=== PATIENT | male | born 1950 | race Caucasian/White ===

== ENCOUNTER 2018-06-30 18:17 | Inpatient (IN) | payer MEDICARE, OTHER ==
[2018-06-30] MEDS: PANTOPRAZOLE IV 80 MG in SOD CHLORIDE 0.9% 100 ML IVPB (00:08)
[2018-06-30 18:27] LABS: ADD MAN DIFF? NO
[2018-06-30 18:32] LABS: WHITE BLOOD COUNT 20.2 10^3/ul (4.8-10.8)
[2018-06-30 18:32] LABS: BASOPHIL # 0.1 10^3/ul (0.0-0.1); BASOPHILS % 0.4 % (0.0-2.0); HEMATOCRIT 46.5 % (42.0-52.0); HEMOGLOBIN 13.5 g/dl (14.0-18.0); LYMPHOCYTES % 4.8 % (15.0-51.0); MEAN CORPUSCULAR VOLUME 96.3 fl (82.0-101.0); MEAN PLATELET VOLUME 11.6 fl (7.4-10.4); MONOCYTES % 4.8 % (0.0-11.0); NEUTROPHIL # 17.7 10^3/ul (1.6-7.5); NEUTROPHILS % 87.3 % (39.0-77.0); NUCLEATED RED BLOOD CELLS% 0.1 /100WBC (0.0-0.0); PLATELET COUNT 124 10^3/UL (140-415); POSITIVE DIFF @See below; RED BLOOD COUNT 4.83 10^6/ul (4.70-6.10); RED CELL DISTRIBUTION WIDTH 15.2 % (11.5-14.5)
[2018-06-30 18:48] LABS: INR 0.91; PROTIME 12.4 Sec (11.9-14.9)
[2018-06-30 18:49] LABS: PARTIAL THROMBOPLASTIN TIME 40.8 Sec (23.0-35.0)
[2018-06-30] MEDS: PIPER-TAZO 3.375 GM IV (PMX) 100 ML IVPB (18:50)
[2018-06-30] MEDS: SODIUM CHLORIDE 0.9% 1L BAG IV* (18:50)
[2018-06-30 18:53] LABS: ALANINE AMINOTRANSFERASE 122 IU/L (13-69); ALBUMIN/GLOBULIN RATIO 1.05; ALKALINE PHOSPHATASE 86 IU/L (42-121); ANION GAP 8 (5-13); ASPARTATE AMINO TRANSFERASE 173 IU/L (15-46); BLOOD UREA NITROGEN 38 mg/dl (7-20); CALCIUM 9.4 mg/dl (8.4-10.2); CARBON DIOXIDE 34 mmol/L (21-31); CHLORIDE 94 mmol/L (97-110); CREATININE 1.68 mg/dl (0.61-1.24); Estimated GFR 41 mL/min (>60); GLUCOSE 173 mg/dl (70-220); POTASSIUM 5.4 mmol/L (3.5-5.1); SODIUM 136 mmol/L (135-144); TOTAL PROTEIN 7.8 g/dl (6.1-8.1)
[2018-06-30 19:16] LABS: TROPONIN-I 0.248 ng/ml (0.000-0.120)
[2018-06-30] MEDS: VANCOMYCIN 1 GM (PMX) 250 ML IVPB (19:37)
[2018-06-30 19:39] LABS: ADD UMIC YES; UR AMORPHOUS CRYSTAL MANY /HPF (NONE SEEN); UR ASCORBIC ACID 40 mg/dL (NEGATIVE); UR BACTERIA FEW /HPF (NONE SEEN); UR BILIRUBIN (Dip) NEGATIVE (NEGATIVE); UR BLOOD (Dip) NEGATIVE (NEGATIVE); UR CLARITY CLOUDY (CLEAR); UR COLOR AMBER (YELLOW); UR GLUCOSE (Dip) NEGATIVE (NEGATIVE); UR HYALINE CAST FEW /HPF (NONE SEEN); UR KETONES (Dip) NEGATIVE (NEGATIVE); UR LEUKOCYTE ESTERASE (Dip) 1+ Leu/ul (NEGATIVE); UR MUCUS FEW /HPF (NONE SEEN); UR NITRITE (Dip) NEGATIVE (NEGATIVE); UR RBC 4 /HPF (0-5); UR SPECIFIC GRAVITY (Dip) 1.016 (1.003-1.030); UR TOTAL PROTEIN (Dip) 2+ mg/dl (NEGATIVE); UR UROBILINOGEN (Dip) 1+ mg/dL (NEGATIVE); UR WBC 33 /HPF (0-5)
[2018-06-30 22:15] LABS: AADO2 Arterial 481.4 mmHg (7.0-24.0); Arterial Base Excess -1.1 mmol/L (-3.0-3); Arterial Blood Gas Oxygen Sat 98.9 mmHG (95.0-98.0); Arterial COHb 2.3 % (0.0-3.0); Arterial Fraction of Oxyhgb 96.5 % (93.0-99.0); Arterial HCO3 28.7 mmol/L (22.0-26.0); Arterial MetHb 0.1 % (0.0-1.5); Arterial pCO2 74.7 mmhg (35-45); MODE VENT - AC; Site Right Brachial
[2018-06-30] MEDS ORDERED: morphine 2 MG INJ IV (23:30)
[2018-06-30] MEDS ORDERED: ACETAMINOPHEN 650 MG SUPP PR (23:30)
[2018-06-30] MEDS ORDERED: PROPOFOL 100 ML (23:59)
[2018-07-01] MEDS ORDERED: ETOMIDATE 20 MG INJ
[2018-07-01] MEDS ORDERED: ROCURONIUM 50 MG INJ
[2018-07-01] MEDS: PROPOFOL 100 ML IV ×5 (00:09→22:56)
[2018-07-01] MEDS: NORepinephrine 8MG/250 ML (PMX 250 ML IV ×2 (00:22→09:48)
[2018-07-01] MEDS: IOHEXOL 300MG/ML 150 ML BTL (00:56)
[2018-07-01] MEDS: SOD CHLORIDE 0.9% 100 ML (00:56)
[2018-07-01 01:30] LABS: Allen Test ACCEPTAB; Arterial Base Excess 0.2 mmol/L (-3.0-3); Arterial Blood Gas Oxygen Sat 77.2 mmHG (95.0-98.0); Arterial COHb 1.6 % (0.0-3.0); Arterial HCO3 26.1 mmol/L (22.0-26.0); Arterial MetHb 0 % (0.0-1.5); Arterial pCO2 47.1 mmhg (35-45); MODE VENT - AC; Site Right Radial
[2018-07-01] MEDS: DOPamine-D5W 1.6 MG/ML 250 ML IV ×2 (01:58→18:00)
[2018-07-01] MEDS: SOD CHLORIDE 0.9% 1,000 ML IV ×4 (01:59→18:37)
[2018-07-01 02:23] LABS: ADD MAN DIFF? NO
[2018-07-01 02:28] LABS: WHITE BLOOD COUNT 21.3 10^3/ul (4.8-10.8)
[2018-07-01 02:28] LABS: ABNORMAL IP MESSAGE 1; BASOPHILS % 0.1 % (0.0-2.0); HEMOGLOBIN 12.1 g/dl (14.0-18.0); LYMPHOCYTES # 1.9 10^3/ul (0.8-2.9); LYMPHOCYTES % 8.8 % (15.0-51.0); MEAN CORPUSCULAR HEMOGLOBIN 27.9 pg (29.0-33.0); MEAN CORPUSCULAR HGB CONC 30.3 g/dl (32.0-37.0); MEAN CORPUSCULAR VOLUME 92.4 fl (82.0-101.0); MONOCYTE # 1.8 10^3/ul (0.3-0.9); MONOCYTES % 8.5 % (0.0-11.0); NEUTROPHIL # 17.3 10^3/ul (1.6-7.5); NEUTROPHILS % 81.6 % (39.0-77.0); NUCLEATED RED BLOOD CELLS # 0.1 10^3/ul (0.0-0.0); NUCLEATED RED BLOOD CELLS% 0.4 /100WBC (0.0-0.0); PLATELET COUNT 138 10^3/UL (140-415); POSITIVE DIFF @See below; RED BLOOD COUNT 4.33 10^6/ul (4.70-6.10); RED CELL DISTRIBUTION WIDTH 15.4 % (11.5-14.5)
[2018-07-01 02:47] LABS: ANION GAP 6 (5-13); BLOOD UREA NITROGEN 41 mg/dl (7-20); CALCIUM 9.2 mg/dl (8.4-10.2); CARBON DIOXIDE 30 mmol/L (21-31); CHLORIDE 103 mmol/L (97-110); CREATININE 1.47 mg/dl (0.61-1.24); Estimated GFR 48 mL/min (>60); GLUCOSE 138 mg/dl (70-220); POTASSIUM 4.7 mmol/L (3.5-5.1); SODIUM 139 mmol/L (135-144)
[2018-07-01 02:58] LABS: HEMOGLOBIN A1C 5.6 % (0-5.9)
[2018-07-01 03:02] LABS: LACTIC ACID 2.6 mmol/L (0.5-2.0)
[2018-07-01] MEDS: PIPER-TAZO 3.375 GM IV (PMX) 100 ML IVPB ×5 (06:06→23:51)
[2018-07-01] MEDS ORDERED: EPINEPHrine 0.1 MG/ML SYG (07:00)
[2018-07-01] MEDS ORDERED: NA BICARBONATE 8.4% 50 ML SYG (07:00)
[2018-07-01] MEDS ORDERED: AMIODARONE 150 MG INJ (07:00)
[2018-07-01] MEDS ORDERED: CA CHLORIDE 10% 10 ML SYRINGE (07:00)
[2018-07-01] MEDS ORDERED: BARIUM SULF 2% 450 ML BTL (BERRY SMOOTHIE) PO (07:30)
[2018-07-01] MEDS: IOHEXOL 14.3 MG(I)/ML (ADULT) BTL PO ×2 (08:06→08:21)
[2018-07-01] MEDS: FAMOTIDINE 20 MG INJ IV ×2 (08:24→21:16)
[2018-07-01] MEDS: ENOXAPARIN 30 MG/0.3 ML SYG SC (09:00)
[2018-07-01 11:12] LABS: AADO2 Arterial 404.3 mmHg (7.0-24.0); Allen Test ACCEPTAB; Arterial Base Excess 1.1 mmol/L (-3.0-3); Arterial Blood Gas Oxygen Sat 99.7 mmHG (95.0-98.0); Arterial COHb 0.8 % (0.0-3.0); Arterial Fraction of Oxyhgb 98.6 % (93.0-99.0); Arterial HCO3 26.3 mmol/L (22.0-26.0); Arterial MetHb 0.3 % (0.0-1.5); Arterial pCO2 44.3 mmhg (35-45); MODE VENT - AC; Site Right Radial
[2018-07-01] MEDS ORDERED: VANCOMYCIN IV PER PHARMACY XX (14:00)
[2018-07-01 15:18] LABS: TROPONIN-I 0.311 ng/ml (0.000-0.120)
[2018-07-01] MEDS: VANCOMYCIN 1 GM 250 ML IVPB (17:24)
[2018-07-02] MEDS: SOD CHLORIDE 0.9% 1,000 ML IV ×2 (04:42→15:38)
[2018-07-02] MEDS: PROPOFOL 100 ML IV ×3 (04:42→21:02)
[2018-07-02 04:49] LABS: ADD MAN DIFF? NO
[2018-07-02 04:53] LABS: BASOPHILS % 0.4 % (0.0-2.0); EOSINOPHILS % 0.1 % (0.0-7.0); HEMATOCRIT 32.9 % (42.0-52.0); HEMOGLOBIN 10.5 g/dl (14.0-18.0); LYMPHOCYTES # 1.8 10^3/ul (0.8-2.9); LYMPHOCYTES % 15.9 % (15.0-51.0); MEAN CORPUSCULAR HEMOGLOBIN 28.3 pg (29.0-33.0); MEAN CORPUSCULAR HGB CONC 31.9 g/dl (32.0-37.0); MEAN CORPUSCULAR VOLUME 88.7 fl (82.0-101.0); MEAN PLATELET VOLUME 10.7 fl (7.4-10.4); MONOCYTE # 1.1 10^3/ul (0.3-0.9); MONOCYTES % 9.6 % (0.0-11.0); NEUTROPHIL # 8.3 10^3/ul (1.6-7.5); NEUTROPHILS % 73.6 % (39.0-77.0); PLATELET COUNT 128 10^3/UL (140-415); RED BLOOD COUNT 3.71 10^6/ul (4.70-6.10)
[2018-07-02 04:53] LABS: WHITE BLOOD COUNT 11.3 10^3/ul (4.8-10.8)
[2018-07-02 05:16] LABS: LACTIC ACID 1.4 mmol/L (0.5-2.0)
[2018-07-02 05:19] LABS: PHOSPHORUS 3.8 mg/dl (2.5-4.9)
[2018-07-02 05:19] LABS: MAGNESIUM 2.3 mg/dl (1.7-2.5)
[2018-07-02 05:21] LABS: ANION GAP 11 (5-13); BLOOD UREA NITROGEN 34 mg/dl (7-20); CALCIUM 8.6 mg/dl (8.4-10.2); CARBON DIOXIDE 26 mmol/L (21-31); CHLORIDE 105 mmol/L (97-110); CREATININE 1.51 mg/dl (0.61-1.24); Estimated GFR 46 mL/min (>60); GLUCOSE 94 mg/dl (70-220); POTASSIUM 4.5 mmol/L (3.5-5.1); SODIUM 142 mmol/L (135-144)
[2018-07-02] MEDS: PIPER-TAZO 3.375 GM IV (PMX) 100 ML IVPB ×3 (06:12→17:04)
[2018-07-02] MEDS: FAMOTIDINE 20 MG INJ IV ×2 (08:45→20:14)
[2018-07-02] MEDS: ENOXAPARIN 30 MG/0.3 ML SYG SC (09:00)
[2018-07-02 09:59] LABS: AADO2 Arterial 215.7 mmHg (7.0-24.0); Allen Test ACCEPTAB; Arterial Base Excess -1.9 mmol/L (-3.0-3); Arterial Blood Gas Oxygen Sat 94.9 mmHG (95.0-98.0); Arterial COHb 0.3 % (0.0-3.0); Arterial Fraction of Oxyhgb 94.6 % (93.0-99.0); Arterial HCO3 24.4 mmol/L (22.0-26.0); Arterial MetHb 0 % (0.0-1.5); Arterial pCO2 48.3 mmhg (35-45); MODE VENT - AC; Site Right Radial
[2018-07-02] MEDS ORDERED: ALBUTEROL HFA 8 GM INHALER INH (10:00)
[2018-07-02] MEDS: METHYLPREDNISOLONE 40 MG INJ IV ×2 (11:31→17:32)
[2018-07-02] MEDS: FENTAnyl 1,000 MCG in DEXTROSE 5% 80 ML IV (11:44)
[2018-07-02 16:10] LABS: ADD UMIC NO; UR ASCORBIC ACID NEGATIVE (NEGATIVE); UR BILIRUBIN (Dip) NEGATIVE (NEGATIVE); UR BLOOD (Dip) NEGATIVE (NEGATIVE); UR CLARITY CLEAR (CLEAR); UR COLOR STRAW (YELLOW); UR GLUCOSE (Dip) NEGATIVE (NEGATIVE); UR KETONES (Dip) NEGATIVE (NEGATIVE); UR LEUKOCYTE ESTERASE (Dip) NEGATIVE Leu/ul (NEGATIVE); UR NITRITE (Dip) NEGATIVE (NEGATIVE); UR SPECIFIC GRAVITY (Dip) 1.014 (1.003-1.030); UR TOTAL PROTEIN (Dip) NEGATIVE (NEGATIVE); UR UROBILINOGEN (Dip) NEGATIVE (NEGATIVE)
[2018-07-02 16:21] LABS: SODIUM,URINE RANDOM 30 mmol/L (30-90)
[2018-07-02 16:21] LABS: CREATININE,URINE RANDOM 37.61 mg/dl (20-370)
[2018-07-02] MEDS: VANCOMYCIN 1 GM 250 ML IVPB (17:04)
[2018-07-02] MEDS: IPRATROPIUM (HFA) 12.9 GM INHALER INH (19:33)
[2018-07-02] MEDS: ALBUTEROL 0.083% (NEB) 2.5 MG/3 ML AMP HHN (19:33)
[2018-07-03] MEDS ORDERED: ALBUTEROL HFA 8 GM INHALER (00:27)
[2018-07-03] MEDS: PIPER-TAZO 3.375 GM IV (PMX) 100 ML IVPB ×3 (00:35→12:07)
[2018-07-03] MEDS: ALBUTEROL HFA 8 GM INHALER INH ×4 (01:34→20:00)
[2018-07-03] MEDS: IPRATROPIUM (HFA) 12.9 GM INHALER INH ×4 (01:34→20:00)
[2018-07-03 05:03] LABS: ADD MAN DIFF? NO
[2018-07-03 05:08] LABS: ABNORMAL IP MESSAGE 1; HEMATOCRIT 33.4 % (42.0-52.0); HEMOGLOBIN 10.1 g/dl (14.0-18.0); LYMPHOCYTES # 0.4 10^3/ul (0.8-2.9); LYMPHOCYTES % 12.7 % (15.0-51.0); MEAN CORPUSCULAR HEMOGLOBIN 27.5 pg (29.0-33.0); MEAN CORPUSCULAR HGB CONC 30.2 g/dl (32.0-37.0); MEAN PLATELET VOLUME 10.5 fl (7.4-10.4); MONOCYTES % 1.3 % (0.0-11.0); NEUTROPHIL # 2.6 10^3/ul (1.6-7.5); NEUTROPHILS % 85.7 % (39.0-77.0); PLATELET COUNT 87 10^3/UL (140-415); POSITIVE DIFF @See below; RED BLOOD COUNT 3.67 10^6/ul (4.70-6.10); RED CELL DISTRIBUTION WIDTH 15.9 % (11.5-14.5)
[2018-07-03] MEDS: METHYLPREDNISOLONE 40 MG INJ IV ×5 (05:22→23:43)
[2018-07-03] MEDS: SOD CHLORIDE 0.9% 1,000 ML IV (05:22)
[2018-07-03 05:28] LABS: ANION GAP 12 (5-13); BLOOD UREA NITROGEN 33 mg/dl (7-20); CALCIUM 8.8 mg/dl (8.4-10.2); CARBON DIOXIDE 26 mmol/L (21-31); CHLORIDE 110 mmol/L (97-110); CREATININE 1.29 mg/dl (0.61-1.24); Estimated GFR 56 mL/min (>60); GLUCOSE 120 mg/dl (70-220); MAGNESIUM 2.4 mg/dl (1.7-2.5); PHOSPHORUS 4.6 mg/dl (2.5-4.9); POTASSIUM 4.4 mmol/L (3.5-5.1); SODIUM 148 mmol/L (135-144)
[2018-07-03] MEDS: FAMOTIDINE 20 MG INJ IV (08:31)
[2018-07-03] MEDS: ASPIRIN 81 MG TAB PO (08:31)
[2018-07-03] MEDS: SOD CHLORIDE 0.45% 1,000 ML IV ×2 (08:33→22:03)
[2018-07-03 08:37] LABS: AADO2 Arterial 320.2 mmHg (7.0-24.0); Allen Test ACCEPTAB; Arterial Base Excess -3.1 mmol/L (-3.0-3); Arterial Blood Gas Oxygen Sat 95.9 mmHG (95.0-98.0); Arterial COHb 0.2 % (0.0-3.0); Arterial Fraction of Oxyhgb 95.6 % (93.0-99.0); Arterial HCO3 23.2 mmol/L (22.0-26.0); Arterial MetHb 0.1 % (0.0-1.5); Arterial pCO2 46.3 mmhg (35-45); MODE VENT - AC; Site Right Radial
[2018-07-03] MEDS: PROPOFOL 100 ML IV (09:45)
[2018-07-03] MEDS: ENOXAPARIN 30 MG/0.3 ML SYG SC (09:52)
[2018-07-03] MEDS: FENTAnyl 1,000 MCG in DEXTROSE 5% 80 ML IV (11:42)
[2018-07-03 15:32] LABS: CREATININE, RANDOM URINE 40 mg/dL (20-320); MICROALBUMIN 2.2 mg/dL; MICROALBUMIN/CREATININE RATIO 55 (<30)
[2018-07-03 20:07] LABS: AADO2 Arterial 215.3 mmHg (7.0-24.0); Allen Test ACCEPTAB; Arterial Base Excess -1.5 mmol/L (-3.0-3); Arterial Blood Gas Oxygen Sat 99.7 mmHG (95.0-98.0); Arterial COHb 0.1 % (0.0-3.0); Arterial Fraction of Oxyhgb 99.4 % (93.0-99.0); Arterial HCO3 24.9 mmol/L (22.0-26.0); Arterial MetHb 0.2 % (0.0-1.5); Arterial pCO2 49.5 mmhg (35-45); MODE MASK - NRB; Site Right Radial
[2018-07-03] MEDS ORDERED: ALBUTEROL 0.083% (NEB) 2.5 MG/3 ML AMP HHN (20:30)
[2018-07-03] MEDS ORDERED: IPRATROPIUM (NEB) 0.5 MG/2.5 ML AMP HHN (20:30)
[2018-07-03] MEDS: MEROPENEM 1 GM/50ML(PMX) 50 ML IVPB (20:38)
[2018-07-03] MEDS: FAMOTIDINE 20 MG TAB PO (21:28)
[2018-07-03] MEDS: ALBUTEROL 0.083% (NEB) 2.5 MG/3 ML AMP HHN ×2 (21:52→23:15)
[2018-07-03] MEDS: IPRATROPIUM (NEB) 0.5 MG/2.5 ML AMP HHN (21:53)
[2018-07-04] MEDS: IPRATROPIUM (NEB) 0.5 MG/2.5 ML AMP HHN ×5 (00:07→20:09)
[2018-07-04] MEDS ORDERED: ALBUTEROL 0.083% (NEB) 2.5 MG/3 ML AMP HHN (02:00)
[2018-07-04] MEDS ORDERED: IPRATROPIUM (NEB) 0.5 MG/2.5 ML AMP HHN (02:00)
[2018-07-04] MEDS: ALBUTEROL 0.083% (NEB) 2.5 MG/3 ML AMP HHN ×4 (02:21→20:09)
[2018-07-04] MEDS: METHYLPREDNISOLONE 40 MG INJ IV ×2 (05:18→20:58)
[2018-07-04 05:24] LABS: ADD MAN DIFF? NO
[2018-07-04 05:31] LABS: WHITE BLOOD COUNT 4.6 10^3/ul (4.8-10.8)
[2018-07-04 05:31] LABS: ABNORMAL IP MESSAGE 1; HEMATOCRIT 35.3 % (42.0-52.0); HEMOGLOBIN 10.9 g/dl (14.0-18.0); LYMPHOCYTES # 0.4 10^3/ul (0.8-2.9); LYMPHOCYTES % 7.6 % (15.0-51.0); MEAN CORPUSCULAR HGB CONC 30.9 g/dl (32.0-37.0); MEAN CORPUSCULAR VOLUME 90.7 fl (82.0-101.0); MEAN PLATELET VOLUME 10.7 fl (7.4-10.4); MONOCYTE # 0.1 10^3/ul (0.3-0.9); NEUTROPHIL # 4.1 10^3/ul (1.6-7.5); NEUTROPHILS % 88.5 % (39.0-77.0); PLATELET COUNT 108 10^3/UL (140-415); POSITIVE DIFF @See below; RED BLOOD COUNT 3.89 10^6/ul (4.70-6.10); RED CELL DISTRIBUTION WIDTH 16.2 % (11.5-14.5)
[2018-07-04 06:11] LABS: ANION GAP 12 (5-13); BLOOD UREA NITROGEN 38 mg/dl (7-20); CARBON DIOXIDE 25 mmol/L (21-31); CHLORIDE 113 mmol/L (97-110); CREATININE 1.07 mg/dl (0.61-1.24); Estimated GFR > 60 mL/min (>60); GLUCOSE 107 mg/dl (70-220); MAGNESIUM 2.4 mg/dl (1.7-2.5); PHOSPHORUS 3.4 mg/dl (2.5-4.9); POTASSIUM 3.9 mmol/L (3.5-5.1); SODIUM 150 mmol/L (135-144)
[2018-07-04 07:30] LABS: AADO2 Arterial 147.7 mmHg (7.0-24.0); Allen Test ACCEPTAB; Arterial Blood Gas Oxygen Sat 91.1 mmHG (95.0-98.0); Arterial COHb 0.6 % (0.0-3.0); Arterial Fraction of Oxyhgb 90.6 % (93.0-99.0); Arterial HCO3 21.6 mmol/L (22.0-26.0); Arterial MetHb 0 % (0.0-1.5); Arterial pCO2 36.8 mmhg (35-45); MODE NASAL CANNULA; Site Right Radial
[2018-07-04] MEDS: FAMOTIDINE 20 MG TAB PO ×2 (09:00→20:58)
[2018-07-04] MEDS: ASPIRIN 81 MG TAB PO (09:00)
[2018-07-04] MEDS: MEROPENEM 1 GM/50ML(PMX) 50 ML IVPB ×2 (09:28→20:59)
[2018-07-04] MEDS: ENOXAPARIN 30 MG/0.3 ML SYG SC (09:29)
[2018-07-04] MEDS: DEXTROSE 5% 1,000 ML IV ×3 (09:36→22:54)
[2018-07-05] MEDS: ALBUTEROL 0.083% (NEB) 2.5 MG/3 ML AMP HHN ×4 (02:21→19:37)
[2018-07-05] MEDS: IPRATROPIUM (NEB) 0.5 MG/2.5 ML AMP HHN ×4 (02:21→19:37)
[2018-07-05 04:37] LABS: ADD MAN DIFF? NO
[2018-07-05 04:43] LABS: WHITE BLOOD COUNT 3.4 10^3/ul (4.8-10.8)
[2018-07-05 04:43] LABS: ABNORMAL IP MESSAGE 1; HEMATOCRIT 33.1 % (42.0-52.0); HEMOGLOBIN 10.3 g/dl (14.0-18.0); LYMPHOCYTES # 0.5 10^3/ul (0.8-2.9); LYMPHOCYTES % 13.5 % (15.0-51.0); MEAN CORPUSCULAR HGB CONC 31.1 g/dl (32.0-37.0); MEAN CORPUSCULAR VOLUME 89.9 fl (82.0-101.0); MEAN PLATELET VOLUME 10.8 fl (7.4-10.4); MONOCYTE # 0.2 10^3/ul (0.3-0.9); MONOCYTES % 4.4 % (0.0-11.0); NEUTROPHIL # 2.8 10^3/ul (1.6-7.5); NEUTROPHILS % 81.8 % (39.0-77.0); PLATELET COUNT 104 10^3/UL (140-415); POSITIVE DIFF @See below; RED BLOOD COUNT 3.68 10^6/ul (4.70-6.10)
[2018-07-05 05:02] LABS: ALANINE AMINOTRANSFERASE 35 IU/L (13-69); ALBUMIN 2.7 g/dl (3.3-4.9); ALKALINE PHOSPHATASE 46 IU/L (42-121); ANION GAP 8 (5-13); ASPARTATE AMINO TRANSFERASE 16 IU/L (15-46); BLOOD UREA NITROGEN 36 mg/dl (7-20); CALCIUM 8.8 mg/dl (8.4-10.2); CARBON DIOXIDE 28 mmol/L (21-31); CHLORIDE 109 mmol/L (97-110); CREATININE 0.95 mg/dl (0.61-1.24); Estimated GFR > 60 mL/min (>60); GLUCOSE 200 mg/dl (70-220); POTASSIUM 3.6 mmol/L (3.5-5.1); SODIUM 145 mmol/L (135-144); TOTAL PROTEIN 5.4 g/dl (6.1-8.1)
[2018-07-05 05:04] LABS: MAGNESIUM 2.4 mg/dl (1.7-2.5)
[2018-07-05 05:04] LABS: PHOSPHORUS 2.9 mg/dl (2.5-4.9)
[2018-07-05] MEDS: FAMOTIDINE 20 MG TAB PO ×2 (09:54→20:46)
[2018-07-05] MEDS: MEROPENEM 1 GM/50ML(PMX) 50 ML IVPB ×2 (09:54→20:46)
[2018-07-05] MEDS: METHYLPREDNISOLONE 40 MG INJ IV ×2 (09:54→20:46)
[2018-07-05] MEDS: ENOXAPARIN 30 MG/0.3 ML SYG SC (09:55)
[2018-07-05] MEDS: ASPIRIN 81 MG TAB PO (09:55)
[2018-07-06] MEDS: ZOLPIDEM 5 MG TAB PO ×2 (00:08→21:42)
[2018-07-06] MEDS: IPRATROPIUM (NEB) 0.5 MG/2.5 ML AMP HHN ×4 (02:27→19:19)
[2018-07-06] MEDS: ALBUTEROL 0.083% (NEB) 2.5 MG/3 ML AMP HHN ×4 (02:27→19:19)
[2018-07-06 05:50] LABS: ANION GAP 7 (5-13); BLOOD UREA NITROGEN 31 mg/dl (7-20); CALCIUM 8.9 mg/dl (8.4-10.2); CARBON DIOXIDE 30 mmol/L (21-31); CHLORIDE 108 mmol/L (97-110); CREATININE 0.75 mg/dl (0.61-1.24); Estimated GFR > 60 mL/min (>60); GLUCOSE 133 mg/dl (70-220); MAGNESIUM 2.3 mg/dl (1.7-2.5); PHOSPHORUS 2.8 mg/dl (2.5-4.9); SODIUM 145 mmol/L (135-144)
[2018-07-06] MEDS: METHYLPREDNISOLONE 40 MG INJ IV ×2 (08:09→20:09)
[2018-07-06] MEDS: ASPIRIN 81 MG TAB PO (08:10)
[2018-07-06] MEDS: FAMOTIDINE 20 MG TAB PO ×2 (08:10→20:09)
[2018-07-06] MEDS: MEROPENEM 1 GM/50ML(PMX) 50 ML IVPB (08:10)
[2018-07-06] MEDS: ENOXAPARIN 30 MG/0.3 ML SYG SC (08:19)
[2018-07-06] MEDS: AMLODIPINE 10 MG TAB PO (15:16)
[2018-07-06] MEDS: GUAIFENESIN/DM 5ML CUP PO (20:09)
[2018-07-06] MEDS: morphine 4 MG/ML VIAL IV (20:11)
[2018-07-07] MEDS: morphine 4 MG/ML VIAL IV (00:35)
[2018-07-07] MEDS: ALBUTEROL 0.083% (NEB) 2.5 MG/3 ML AMP HHN ×4 (01:10→20:00)
[2018-07-07] MEDS: IPRATROPIUM (NEB) 0.5 MG/2.5 ML AMP HHN ×4 (01:10→20:00)
[2018-07-07] MEDS: GUAIFENESIN/DM 5ML CUP PO (04:59)
[2018-07-07 06:07] LABS: ANION GAP 6 (5-13); BLOOD UREA NITROGEN 26 mg/dl (7-20); CALCIUM 9.1 mg/dl (8.4-10.2); CARBON DIOXIDE 36 mmol/L (21-31); CHLORIDE 103 mmol/L (97-110); CREATININE 0.73 mg/dl (0.61-1.24); Estimated GFR > 60 mL/min (>60); GLUCOSE 101 mg/dl (70-220); MAGNESIUM 2.2 mg/dl (1.7-2.5); PHOSPHORUS 2.8 mg/dl (2.5-4.9); POTASSIUM 4.3 mmol/L (3.5-5.1); SODIUM 145 mmol/L (135-144)
[2018-07-07] MEDS: AMLODIPINE 10 MG TAB PO (08:25)
[2018-07-07] MEDS: ASPIRIN 81 MG TAB PO (08:25)
[2018-07-07] MEDS: METHYLPREDNISOLONE 40 MG INJ IV ×2 (08:25→20:18)
[2018-07-07] MEDS: FAMOTIDINE 20 MG TAB PO ×2 (08:25→20:18)
[2018-07-07] MEDS: ENOXAPARIN 30 MG/0.3 ML SYG SC (08:27)
[2018-07-07] MEDS: BALSAM PERU/CASTOR OIL 60 GM TUBE TOP (15:55)
[2018-07-07] MEDS: DIVALPROEX (EC) 250 MG TAB PO (17:31)
[2018-07-08] MEDS: DIVALPROEX (EC) 250 MG TAB PO ×3 (00:07→18:52)
[2018-07-08] MEDS: IPRATROPIUM (NEB) 0.5 MG/2.5 ML AMP HHN ×4 (02:08→19:57)
[2018-07-08] MEDS: ALBUTEROL 0.083% (NEB) 2.5 MG/3 ML AMP HHN ×4 (02:08→19:57)
[2018-07-08] MEDS: GUAIFENESIN/DM 5ML CUP PO (02:20)
[2018-07-08] MEDS: ASPIRIN 81 MG TAB PO (08:40)
[2018-07-08] MEDS: METHYLPREDNISOLONE 40 MG INJ IV ×2 (08:40→20:31)
[2018-07-08] MEDS: FAMOTIDINE 20 MG TAB PO ×2 (08:41→20:44)
[2018-07-08] MEDS: AMLODIPINE 10 MG TAB PO (08:44)
[2018-07-08] MEDS: ENOXAPARIN 30 MG/0.3 ML SYG SC (08:45)
[2018-07-08] MEDS: BALSAM PERU/CASTOR OIL 60 GM TUBE TOP (08:50)
[2018-07-08] MEDS: INFLUENZA VIRUS VACCINE 0.5 ML (DISPENSING) IM* (16:15)
[2018-07-09] MEDS: DIVALPROEX (EC) 250 MG TAB PO ×3 (01:54→17:12)
[2018-07-09] MEDS: ALBUTEROL 0.083% (NEB) 2.5 MG/3 ML AMP HHN ×4 (02:04→19:38)
[2018-07-09] MEDS: IPRATROPIUM (NEB) 0.5 MG/2.5 ML AMP HHN ×4 (02:04→19:38)
[2018-07-09 07:07] LABS: ANION GAP 7 (5-13); BLOOD UREA NITROGEN 40 mg/dl (7-20); CALCIUM 9.5 mg/dl (8.4-10.2); CARBON DIOXIDE 33 mmol/L (21-31); CHLORIDE 102 mmol/L (97-110); CREATININE 0.84 mg/dl (0.61-1.24); Estimated GFR > 60 mL/min (>60); GLUCOSE 111 mg/dl (70-220); MAGNESIUM 2.4 mg/dl (1.7-2.5); PHOSPHORUS 3.7 mg/dl (2.5-4.9); POTASSIUM 3.9 mmol/L (3.5-5.1); SODIUM 142 mmol/L (135-144)
[2018-07-09] MEDS: FAMOTIDINE 20 MG TAB PO ×2 (08:21→20:53)
[2018-07-09] MEDS: ASPIRIN 81 MG TAB PO (08:21)
[2018-07-09] MEDS: METHYLPREDNISOLONE 40 MG INJ IV (08:21)
[2018-07-09] MEDS: ENOXAPARIN 30 MG/0.3 ML SYG SC (08:25)
[2018-07-09] MEDS: BALSAM PERU/CASTOR OIL 60 GM TUBE TOP (08:26)
[2018-07-09] MEDS: AMLODIPINE 10 MG TAB PO (09:07)
[2018-07-09] MEDS: RISPERIDONE 0.25 MG TAB PO (20:53)
[2018-07-09] MEDS: morphine LIQ (10 MG/5 ML) CUP PO (22:56)
[2018-07-09] MEDS: ZOLPIDEM 5 MG TAB PO (23:03)
[2018-07-10] MEDS: IPRATROPIUM (NEB) 0.5 MG/2.5 ML AMP HHN ×4 (01:49→21:00)
[2018-07-10] MEDS: ALBUTEROL 0.083% (NEB) 2.5 MG/3 ML AMP HHN ×4 (01:49→21:00)
[2018-07-10] MEDS: DIVALPROEX (EC) 250 MG TAB PO ×3 (01:57→17:13)
[2018-07-10 08:06] LABS: ADD MAN DIFF? NO
[2018-07-10 08:12] LABS: BASOPHILS % 0.1 % (0.0-2.0); EOSINOPHILS % 0.1 % (0.0-7.0); HEMATOCRIT 38.8 % (42.0-52.0); MEAN CORPUSCULAR HEMOGLOBIN 27.7 pg (29.0-33.0); MEAN CORPUSCULAR HGB CONC 30.9 g/dl (32.0-37.0); MEAN CORPUSCULAR VOLUME 89.6 fl (82.0-101.0); MEAN PLATELET VOLUME 10.9 fl (7.4-10.4); MONOCYTES % 8.7 % (0.0-11.0); NEUTROPHILS % 81.4 % (39.0-77.0); PLATELET COUNT 141 10^3/UL (140-415); RED BLOOD COUNT 4.33 10^6/ul (4.70-6.10); RED CELL DISTRIBUTION WIDTH 16.2 % (11.5-14.5)
[2018-07-10 08:30] LABS: ANION GAP 5 (5-13); BLOOD UREA NITROGEN 34 mg/dl (7-20); CALCIUM 9.2 mg/dl (8.4-10.2); CARBON DIOXIDE 35 mmol/L (21-31); CHLORIDE 104 mmol/L (97-110); CREATININE 0.68 mg/dl (0.61-1.24); Estimated GFR > 60 mL/min (>60); GLUCOSE 75 mg/dl (70-220); SODIUM 144 mmol/L (135-144)
[2018-07-10] MEDS: GUAIFENESIN/DM 5ML CUP PO (09:04)
[2018-07-10] MEDS: FAMOTIDINE 20 MG TAB PO ×2 (09:05→20:33)
[2018-07-10] MEDS: morphine LIQ (10 MG/5 ML) CUP PO (09:05)
[2018-07-10] MEDS: FUROSEMIDE 20 MG INJ IV (09:05)
[2018-07-10] MEDS: ASPIRIN 81 MG TAB PO (09:05)
[2018-07-10] MEDS: AMLODIPINE 10 MG TAB PO (09:07)
[2018-07-10] MEDS: RISPERIDONE 0.25 MG TAB PO ×2 (09:08→20:33)
[2018-07-10] MEDS: ENOXAPARIN 30 MG/0.3 ML SYG SC (09:12)
[2018-07-10] MEDS: BALSAM PERU/CASTOR OIL 60 GM TUBE TOP (09:21)
[2018-07-11] MEDS: DIVALPROEX (EC) 250 MG TAB PO ×3 (01:36→16:33)
[2018-07-11] MEDS: ALBUTEROL 0.083% (NEB) 2.5 MG/3 ML AMP HHN ×5 (02:14→19:42)
[2018-07-11] MEDS: IPRATROPIUM (NEB) 0.5 MG/2.5 ML AMP HHN ×5 (02:14→19:42)
[2018-07-11 07:16] LABS: ADD MAN DIFF? NO
[2018-07-11 07:30] LABS: WHITE BLOOD COUNT 11.3 10^3/ul (4.8-10.8)
[2018-07-11 07:30] LABS: BASOPHILS % 0.3 % (0.0-2.0); EOSINOPHILS # 0.2 10^3/ul (0.0-0.5); EOSINOPHILS % 1.6 % (0.0-7.0); HEMATOCRIT 38.8 % (42.0-52.0); HEMOGLOBIN 12.1 g/dl (14.0-18.0); LYMPHOCYTES # 1.6 10^3/ul (0.8-2.9); LYMPHOCYTES % 13.8 % (15.0-51.0); MEAN CORPUSCULAR HEMOGLOBIN 28.1 pg (29.0-33.0); MEAN CORPUSCULAR HGB CONC 31.2 g/dl (32.0-37.0); MEAN CORPUSCULAR VOLUME 90.2 fl (82.0-101.0); MEAN PLATELET VOLUME 11.1 fl (7.4-10.4); MONOCYTE # 0.8 10^3/ul (0.3-0.9); NEUTROPHIL # 8.7 10^3/ul (1.6-7.5); NEUTROPHILS % 76.9 % (39.0-77.0); PLATELET COUNT 132 10^3/UL (140-415); POSITIVE DIFF @See below; RED CELL DISTRIBUTION WIDTH 16.3 % (11.5-14.5)
[2018-07-11 08:01] LABS: ANION GAP 1 (5-13); BLOOD UREA NITROGEN 30 mg/dl (7-20); CALCIUM 9.1 mg/dl (8.4-10.2); CARBON DIOXIDE 35 mmol/L (21-31); CHLORIDE 102 mmol/L (97-110); CREATININE 0.75 mg/dl (0.61-1.24); Estimated GFR > 60 mL/min (>60); GLUCOSE 77 mg/dl (70-220); MAGNESIUM 2.1 mg/dl (1.7-2.5); PHOSPHORUS 2.6 mg/dl (2.5-4.9); POTASSIUM 4.4 mmol/L (3.5-5.1); SODIUM 138 mmol/L (135-144)
[2018-07-11] MEDS: RISPERIDONE 0.25 MG TAB PO (08:35)
[2018-07-11] MEDS: BALSAM PERU/CASTOR OIL 60 GM TUBE TOP (08:36)
[2018-07-11] MEDS: AMLODIPINE 10 MG TAB PO (08:36)
[2018-07-11] MEDS: ASPIRIN 81 MG TAB PO (08:36)
[2018-07-11] MEDS: FAMOTIDINE 20 MG TAB PO ×2 (08:36→20:51)
[2018-07-11] MEDS: ENOXAPARIN 30 MG/0.3 ML SYG SC (08:38)
[2018-07-11] MEDS ORDERED: VANCOMYCIN IV PER PHARMACY XX (15:00)
[2018-07-11] MEDS: MEROPENEM 1 GM/50ML(PMX) 50 ML IVPB ×2 (15:34→20:51)
[2018-07-11] MEDS: VANCOMYCIN HCL 1.25 GM in SOD CHLORIDE 0.9% 250 ML IVPB (16:26)
[2018-07-11] MEDS: FUROSEMIDE 20 MG INJ IV (16:36)
[2018-07-11] MEDS: ONDANSETRON 4 MG INJ IV (18:46)
[2018-07-11] MEDS: RISPERIDONE 1 MG TAB PO (20:51)
[2018-07-12] MEDS: DIVALPROEX (EC) 250 MG TAB PO ×3 (01:03→20:56)
[2018-07-12] MEDS: IPRATROPIUM (NEB) 0.5 MG/2.5 ML AMP HHN ×4 (01:04→20:38)
[2018-07-12] MEDS: ALBUTEROL 0.083% (NEB) 2.5 MG/3 ML AMP HHN ×4 (01:05→20:38)
[2018-07-12 06:21] LABS: ADD MAN DIFF? NO
[2018-07-12 06:27] LABS: WHITE BLOOD COUNT 7.2 10^3/ul (4.8-10.8)
[2018-07-12 06:27] LABS: EOSINOPHILS # 0.2 10^3/ul (0.0-0.5); EOSINOPHILS % 2.9 % (0.0-7.0); HEMATOCRIT 35.2 % (42.0-52.0); HEMOGLOBIN 10.7 g/dl (14.0-18.0); LYMPHOCYTES # 1.1 10^3/ul (0.8-2.9); LYMPHOCYTES % 15.4 % (15.0-51.0); MEAN CORPUSCULAR HEMOGLOBIN 27.4 pg (29.0-33.0); MEAN CORPUSCULAR HGB CONC 30.4 g/dl (32.0-37.0); MEAN PLATELET VOLUME 11.3 fl (7.4-10.4); MONOCYTE # 0.5 10^3/ul (0.3-0.9); MONOCYTES % 6.2 % (0.0-11.0); NEUTROPHIL # 5.4 10^3/ul (1.6-7.5); NEUTROPHILS % 75.1 % (39.0-77.0); PLATELET COUNT 102 10^3/UL (140-415); RED BLOOD COUNT 3.91 10^6/ul (4.70-6.10)
[2018-07-12] MEDS: VANCOMYCIN 750 MG (PMX) 250 ML IVPB ×2 (06:32→17:32)
[2018-07-12] MEDS ORDERED: NORepinephrine 8MG/250 ML BAG (07:00)
[2018-07-12] MEDS ORDERED: MIDAZOLAM 1 MG/ML 2 ML INJ (07:00)
[2018-07-12] MEDS ORDERED: VECURONIUM 10 MG VIAL (07:00)
[2018-07-12] MEDS ORDERED: ETOMIDATE 20 MG INJ (07:00)
[2018-07-12 07:02] LABS: ANION GAP 2 (5-13); BLOOD UREA NITROGEN 32 mg/dl (7-20); CALCIUM 9.2 mg/dl (8.4-10.2); CARBON DIOXIDE 38 mmol/L (21-31); CHLORIDE 100 mmol/L (97-110); Estimated GFR > 60 mL/min (>60); GLUCOSE 75 mg/dl (70-220); POTASSIUM 4.8 mmol/L (3.5-5.1); SODIUM 140 mmol/L (135-144)
[2018-07-12] MEDS: morphine LIQ (10 MG/5 ML) CUP PO (07:18)
[2018-07-12] MEDS: MEROPENEM 1 GM/50ML(PMX) 50 ML IVPB ×2 (08:29→20:57)
[2018-07-12] MEDS: FAMOTIDINE 20 MG TAB PO ×2 (08:29→20:56)
[2018-07-12] MEDS: ASPIRIN 81 MG TAB PO (08:29)
[2018-07-12] MEDS: RISPERIDONE 1 MG TAB PO ×2 (08:29→20:57)
[2018-07-12] MEDS: AMLODIPINE 10 MG TAB PO ×2 (08:35→08:36)
[2018-07-12] MEDS: BALSAM PERU/CASTOR OIL 60 GM TUBE TOP (08:35)
[2018-07-12] MEDS: ENOXAPARIN 30 MG/0.3 ML SYG SC (08:36)
[2018-07-12] MEDS ORDERED: FUROSEMIDE 40 MG INJ (09:56)
[2018-07-12] MEDS: FUROSEMIDE 40 MG INJ IV (10:00)
[2018-07-12 10:01] LABS: AADO2 Arterial 271.6 mmHg (7.0-24.0); Allen Test ACCEPTAB; Arterial Base Excess 3.2 mmol/L (-3.0-3); Arterial Blood Gas Oxygen Sat 83.7 mmHG (95.0-98.0); Arterial COHb 0.8 % (0.0-3.0); Arterial Fraction of Oxyhgb 82.9 % (93.0-99.0); Arterial HCO3 34.4 mmol/L (22.0-26.0); Arterial MetHb 0.1 % (0.0-1.5); Arterial pCO2 94.6 mmhg (35-45); MODE MASK - SIMPLE; Site Right Radial
[2018-07-12] MEDS: morphine 4 MG/ML VIAL IV (10:21)
[2018-07-12] MEDS: NORepinephrine 8MG/250 ML (PMX 250 ML IV (10:45)
[2018-07-12] MEDS: PROPOFOL 100 ML IV ×3 (11:00→22:38)
[2018-07-12] MEDS ORDERED: ALTEPLASE (CATHFLO) 2 MG INJ CATHETER (11:00)
[2018-07-12] MEDS: FENTAnyl (DRIP) 1000 mcg/100mL 100 ML IV (11:56)
[2018-07-12] MEDS: METHYLPREDNISOLONE 40 MG INJ IV ×3 (12:14→23:52)
[2018-07-12 12:31] LABS: AADO2 Arterial 397.8 mmHg (7.0-24.0); Allen Test ACCEPTAB; Arterial Base Excess 5.2 mmol/L (-3.0-3); Arterial Blood Gas Oxygen Sat 99.4 mmHG (95.0-98.0); Arterial COHb 0.7 % (0.0-3.0); Arterial Fraction of Oxyhgb 98.6 % (93.0-99.0); Arterial HCO3 34.2 mmol/L (22.0-26.0); Arterial MetHb 0.1 % (0.0-1.5); Arterial pCO2 75.2 mmhg (35-45); MODE VENT - AC; Site Right Radial
[2018-07-13] MEDS: ALBUTEROL 0.083% (NEB) 2.5 MG/3 ML AMP HHN (02:00)
[2018-07-13] MEDS: IPRATROPIUM (NEB) 0.5 MG/2.5 ML AMP HHN (02:00)
[2018-07-13] MEDS: DIVALPROEX (EC) 250 MG TAB PO ×3 (02:06→17:17)
[2018-07-13] MEDS: NORepinephrine 8MG/250 ML (PMX 250 ML IV (02:08)
[2018-07-13] MEDS: FENTAnyl (DRIP) 1000 mcg/100mL 100 ML IV ×2 (04:01→15:50)
[2018-07-13 04:57] LABS: ADD MAN DIFF? NO
[2018-07-13 05:08] LABS: ABNORMAL IP MESSAGE 1; HEMATOCRIT 32.3 % (42.0-52.0); LYMPHOCYTES # 0.5 10^3/ul (0.8-2.9); LYMPHOCYTES % 9.2 % (15.0-51.0); MEAN CORPUSCULAR HEMOGLOBIN 27.9 pg (29.0-33.0); MEAN PLATELET VOLUME 11.3 fl (7.4-10.4); MONOCYTE # 0.1 10^3/ul (0.3-0.9); MONOCYTES % 1.3 % (0.0-11.0); NEUTROPHIL # 4.8 10^3/ul (1.6-7.5); NEUTROPHILS % 88.9 % (39.0-77.0); PLATELET COUNT 131 10^3/UL (140-415); POSITIVE DIFF @See below; RED BLOOD COUNT 3.59 10^6/ul (4.70-6.10); RED CELL DISTRIBUTION WIDTH 15.9 % (11.5-14.5)
[2018-07-13 05:08] LABS: WHITE BLOOD COUNT 5.3 10^3/ul (4.8-10.8)
[2018-07-13 05:31] LABS: ANION GAP 5 (5-13); BLOOD UREA NITROGEN 30 mg/dl (7-20); CALCIUM 8.9 mg/dl (8.4-10.2); CARBON DIOXIDE 34 mmol/L (21-31); CHLORIDE 103 mmol/L (97-110); CREATININE 0.97 mg/dl (0.61-1.24); Estimated GFR > 60 mL/min (>60); GLUCOSE 173 mg/dl (70-220); SODIUM 142 mmol/L (135-144)
[2018-07-13 05:33] LABS: MAGNESIUM 2.4 mg/dl (1.7-2.5)
[2018-07-13 05:33] LABS: PHOSPHORUS 2.6 mg/dl (2.5-4.9)
[2018-07-13 05:35] LABS: VANCOMYCIN,TROUGH 17.6 ug/ml (10.0-20.0)
[2018-07-13] MEDS: VANCOMYCIN 750 MG (PMX) 250 ML IVPB (06:12)
[2018-07-13] MEDS: METHYLPREDNISOLONE 40 MG INJ IV ×4 (06:13→23:04)
[2018-07-13] MEDS: PROPOFOL 100 ML IV ×2 (06:13→15:46)
[2018-07-13] MEDS: MEROPENEM 1 GM/50ML(PMX) 50 ML IVPB ×2 (08:54→21:34)
[2018-07-13] MEDS: ENOXAPARIN 30 MG/0.3 ML SYG SC (08:57)
[2018-07-13] MEDS: AMLODIPINE 10 MG TAB PO (09:00)
[2018-07-13] MEDS: FAMOTIDINE 20 MG TAB PO ×2 (09:44→21:34)
[2018-07-13] MEDS: RISPERIDONE 1 MG TAB PO ×2 (09:44→23:02)
[2018-07-13] MEDS: ASPIRIN 81 MG TAB PO (09:44)
[2018-07-13] MEDS: BALSAM PERU/CASTOR OIL 60 GM TUBE TOP (09:45)
[2018-07-13 09:55] LABS: Allen Test ACCEPTAB; Arterial Base Excess 7.9 mmol/L (-3.0-3); Arterial COHb 0.9 % (0.0-3.0); Arterial Fraction of Oxyhgb 90.8 % (93.0-99.0); Arterial MetHb 0.3 % (0.0-1.5); Arterial pCO2 42.5 mmhg (35-45); MODE VENT - AC; Site Right Radial
[2018-07-13] MEDS: ALBUMIN HUMAN 25% 100 ML IV ×3 (12:07→23:02)
[2018-07-13] MEDS ORDERED: ALBUTEROL 0.083% (NEB) 2.5 MG/3 ML AMP INH (14:00)
[2018-07-13] MEDS ORDERED: IPRATROPIUM (NEB) 0.5 MG/2.5 ML AMP INH (14:00)
[2018-07-13] MEDS: ALBUTEROL HFA 8 GM INHALER INH ×2 (14:12→20:35)
[2018-07-13] MEDS: IPRATROPIUM (HFA) 12.9 GM INHALER INH ×2 (14:12→20:35)
[2018-07-14] MEDS: PROPOFOL 100 ML IV ×2 (00:48→08:09)
[2018-07-14] MEDS: DIVALPROEX (EC) 250 MG TAB PO ×3 (01:30→17:00)
[2018-07-14] MEDS: ALBUTEROL HFA 8 GM INHALER INH ×3 (01:59→13:10)
[2018-07-14] MEDS: IPRATROPIUM (HFA) 12.9 GM INHALER INH ×3 (01:59→13:10)
[2018-07-14 05:08] LABS: ADD MAN DIFF? NO
[2018-07-14] MEDS: METHYLPREDNISOLONE 40 MG INJ IV ×3 (05:09→18:00)
[2018-07-14] MEDS: ALBUMIN HUMAN 25% 100 ML IV (05:12)
[2018-07-14 05:13] LABS: ABNORMAL IP MESSAGE 1; HEMATOCRIT 28.5 % (42.0-52.0); HEMOGLOBIN 8.8 g/dl (14.0-18.0); LYMPHOCYTES # 0.5 10^3/ul (0.8-2.9); LYMPHOCYTES % 16.2 % (15.0-51.0); MEAN CORPUSCULAR HEMOGLOBIN 27.8 pg (29.0-33.0); MEAN CORPUSCULAR HGB CONC 30.9 g/dl (32.0-37.0); MEAN CORPUSCULAR VOLUME 90.2 fl (82.0-101.0); MEAN PLATELET VOLUME 11.5 fl (7.4-10.4); MONOCYTE # 0.1 10^3/ul (0.3-0.9); MONOCYTES % 3.1 % (0.0-11.0); NEUTROPHIL # 2.3 10^3/ul (1.6-7.5); PLATELET COUNT 78 10^3/UL (140-415); POSITIVE DIFF @See below; RED BLOOD COUNT 3.16 10^6/ul (4.70-6.10); RED CELL DISTRIBUTION WIDTH 16.5 % (11.5-14.5)
[2018-07-14 05:13] LABS: WHITE BLOOD COUNT 2.9 10^3/ul (4.8-10.8)
[2018-07-14 05:34] LABS: ANION GAP -1 (5-13); BLOOD UREA NITROGEN 38 mg/dl (7-20); CARBON DIOXIDE 37 mmol/L (21-31); CHLORIDE 112 mmol/L (97-110); CREATININE 0.77 mg/dl (0.61-1.24); Estimated GFR > 60 mL/min (>60); GLUCOSE 125 mg/dl (70-220); MAGNESIUM 2.6 mg/dl (1.7-2.5); PHOSPHORUS 2.1 mg/dl (2.5-4.9); POTASSIUM 3.8 mmol/L (3.5-5.1); SODIUM 148 mmol/L (135-144)
[2018-07-14] MEDS: VANCOMYCIN HCL 1.5 GM in SOD CHLORIDE 0.9% 250 ML IVPB (06:18)
[2018-07-14] MEDS: RISPERIDONE 1 MG TAB PO ×2 (08:10→20:38)
[2018-07-14] MEDS: FAMOTIDINE 20 MG TAB PO ×2 (08:10→20:38)
[2018-07-14] MEDS: ASPIRIN 81 MG TAB PO (08:10)
[2018-07-14] MEDS: NEUTRA-PHOS 250 MG PACKET PO (08:10)
[2018-07-14] MEDS: BALSAM PERU/CASTOR OIL 60 GM TUBE TOP (08:11)
[2018-07-14] MEDS: AMLODIPINE 10 MG TAB PO (09:00)
[2018-07-14] MEDS: ENOXAPARIN 30 MG/0.3 ML SYG SC (09:00)
[2018-07-14] MEDS: FENTAnyl (DRIP) 1000 mcg/100mL 100 ML IV (09:17)
[2018-07-14] MEDS: MEROPENEM 1 GM/50ML(PMX) 50 ML IVPB ×2 (09:45→20:38)
[2018-07-14 13:29] LABS: AADO2 Arterial 112.1 mmHg (7.0-24.0); Allen Test ACCEPTAB; Arterial Base Excess 9.3 mmol/L (-3.0-3); Arterial Blood Gas Oxygen Sat 94.7 mmHG (95.0-98.0); Arterial COHb 0.5 % (0.0-3.0); Arterial Fraction of Oxyhgb 94.2 % (93.0-99.0); Arterial MetHb 0 % (0.0-1.5); Arterial pCO2 53.3 mmhg (35-45); Blood Gas PS 10; MODE VENT - CPAP; Site Right Radial
[2018-07-14] MEDS: ZOLPIDEM 5 MG TAB PO (20:38)
[2018-07-14] MEDS: ALBUTEROL/IPRATROPIUM (NEB) 3 ML AMP HHN (20:57)
[2018-07-15] MEDS: DIVALPROEX (EC) 250 MG TAB PO ×3 (00:33→17:09)
[2018-07-15] MEDS: METHYLPREDNISOLONE 40 MG INJ IV ×4 (00:33→17:13)
[2018-07-15] MEDS: ALBUTEROL/IPRATROPIUM (NEB) 3 ML AMP HHN ×4 (01:13→19:12)
[2018-07-15] MEDS: morphine LIQ (10 MG/5 ML) CUP PO (02:47)
[2018-07-15 05:17] LABS: ADD MAN DIFF? NO
[2018-07-15 05:20] LABS: ABNORMAL IP MESSAGE 1; HEMATOCRIT 31.6 % (42.0-52.0); HEMOGLOBIN 9.7 g/dl (14.0-18.0); LYMPHOCYTES # 0.4 10^3/ul (0.8-2.9); LYMPHOCYTES % 10.2 % (15.0-51.0); MEAN CORPUSCULAR HEMOGLOBIN 27.9 pg (29.0-33.0); MEAN CORPUSCULAR HGB CONC 30.7 g/dl (32.0-37.0); MEAN CORPUSCULAR VOLUME 90.8 fl (82.0-101.0); MEAN PLATELET VOLUME 11.2 fl (7.4-10.4); MONOCYTE # 0.1 10^3/ul (0.3-0.9); MONOCYTES % 3.5 % (0.0-11.0); NEUTROPHIL # 3.2 10^3/ul (1.6-7.5); PLATELET COUNT 78 10^3/UL (140-415); POSITIVE DIFF @See below; RED BLOOD COUNT 3.48 10^6/ul (4.70-6.10); RED CELL DISTRIBUTION WIDTH 16.5 % (11.5-14.5)
[2018-07-15 05:20] LABS: WHITE BLOOD COUNT 3.7 10^3/ul (4.8-10.8)
[2018-07-15 05:46] LABS: ANION GAP 1 (5-13); BLOOD UREA NITROGEN 42 mg/dl (7-20); CALCIUM 9.4 mg/dl (8.4-10.2); CARBON DIOXIDE 37 mmol/L (21-31); CHLORIDE 113 mmol/L (97-110); CREATININE 0.77 mg/dl (0.61-1.24); Estimated GFR > 60 mL/min (>60); GLUCOSE 130 mg/dl (70-220); MAGNESIUM 2.5 mg/dl (1.7-2.5); PHOSPHORUS 2.6 mg/dl (2.5-4.9); POTASSIUM 3.6 mmol/L (3.5-5.1); SODIUM 151 mmol/L (135-144)
[2018-07-15] MEDS: VANCOMYCIN HCL 1.5 GM in SOD CHLORIDE 0.9% 250 ML IVPB (05:48)
[2018-07-15] MEDS: DEXTROSE 5% 1,000 ML IV (07:00)
[2018-07-15 08:13] LABS: Allen Test ACCEPTAB; Arterial Base Excess 3.3 mmol/L (-3.0-3); Arterial Blood Gas Oxygen Sat 93.2 mmHG (95.0-98.0); Arterial COHb 1.5 % (0.0-3.0); Arterial Fraction of Oxyhgb 91.5 % (93.0-99.0); Arterial HCO3 27.2 mmol/L (22.0-26.0); Arterial MetHb 0.3 % (0.0-1.5); Arterial pCO2 38.8 mmhg (35-45); MODE NASAL CANNULA; Site Right Radial
[2018-07-15] MEDS: MEROPENEM 1 GM/50ML(PMX) 50 ML IVPB ×2 (08:57→20:31)
[2018-07-15] MEDS: FAMOTIDINE 20 MG TAB PO ×2 (08:58→20:31)
[2018-07-15] MEDS: ASPIRIN 81 MG TAB PO (08:58)
[2018-07-15] MEDS: AMLODIPINE 5 MG TAB PO (08:58)
[2018-07-15] MEDS: RISPERIDONE 1 MG TAB PO ×2 (08:59→20:31)
[2018-07-15] MEDS: BALSAM PERU/CASTOR OIL 60 GM TUBE TOP (08:59)
[2018-07-15] MEDS: PROPOFOL 100 ML IV ×2 (11:00→20:26)
[2018-07-15] MEDS: ZOLPIDEM 5 MG TAB PO (20:31)
[2018-07-16] MEDS: METHYLPREDNISOLONE 40 MG INJ IV ×5 (00:03→23:59)
[2018-07-16] MEDS: DIVALPROEX (EC) 250 MG TAB PO ×3 (00:03→17:55)
[2018-07-16] MEDS: ALBUTEROL/IPRATROPIUM (NEB) 3 ML AMP HHN ×4 (02:08→19:57)
[2018-07-16 05:11] LABS: ADD MAN DIFF? NO
[2018-07-16 05:33] LABS: ABNORMAL IP MESSAGE 1; HEMATOCRIT 30.7 % (42.0-52.0); HEMOGLOBIN 9.6 g/dl (14.0-18.0); LYMPHOCYTES # 0.4 10^3/ul (0.8-2.9); LYMPHOCYTES % 13.7 % (15.0-51.0); MEAN CORPUSCULAR HEMOGLOBIN 27.9 pg (29.0-33.0); MEAN CORPUSCULAR HGB CONC 31.3 g/dl (32.0-37.0); MEAN CORPUSCULAR VOLUME 89.2 fl (82.0-101.0); MEAN PLATELET VOLUME 10.6 fl (7.4-10.4); MONOCYTE # 0.1 10^3/ul (0.3-0.9); MONOCYTES % 3.4 % (0.0-11.0); NEUTROPHIL # 2.4 10^3/ul (1.6-7.5); NEUTROPHILS % 82.2 % (39.0-77.0); PLATELET COUNT 69 10^3/UL (140-415); POSITIVE DIFF @See below; RED BLOOD COUNT 3.44 10^6/ul (4.70-6.10)
[2018-07-16 05:33] LABS: WHITE BLOOD COUNT 2.9 10^3/ul (4.8-10.8)
[2018-07-16 06:04] LABS: ANION GAP 1 (5-13); BLOOD UREA NITROGEN 35 mg/dl (7-20); CALCIUM 9.3 mg/dl (8.4-10.2); CARBON DIOXIDE 36 mmol/L (21-31); CHLORIDE 108 mmol/L (97-110); CREATININE 0.72 mg/dl (0.61-1.24); Estimated GFR > 60 mL/min (>60); GLUCOSE 141 mg/dl (70-220); MAGNESIUM 2.4 mg/dl (1.7-2.5); PHOSPHORUS 2.5 mg/dl (2.5-4.9); POTASSIUM 4.1 mmol/L (3.5-5.1); SODIUM 145 mmol/L (135-144)
[2018-07-16] MEDS: VANCOMYCIN HCL 1.5 GM in DEXTROSE 5% 250 ML IVPB (06:22)
[2018-07-16] MEDS: MEROPENEM 1 GM/50ML(PMX) 50 ML IVPB ×2 (09:09→20:51)
[2018-07-16] MEDS: RISPERIDONE 1 MG TAB PO ×2 (09:09→20:51)
[2018-07-16] MEDS: FAMOTIDINE 20 MG TAB PO ×2 (09:09→20:51)
[2018-07-16] MEDS: AMLODIPINE 5 MG TAB PO (09:09)
[2018-07-16] MEDS: ASPIRIN 81 MG TAB PO (09:09)
[2018-07-16] MEDS: BALSAM PERU/CASTOR OIL 60 GM TUBE TOP (09:10)
[2018-07-16] MEDS: PROPOFOL 100 ML IV ×2 (10:21→23:00)
[2018-07-17] MEDS: ALBUTEROL/IPRATROPIUM (NEB) 3 ML AMP HHN ×5 (01:12→20:00)
[2018-07-17] MEDS: LORAZEPAM 2 MG INJ IV ×2 (02:17→16:10)
[2018-07-17] MEDS: METHYLPREDNISOLONE 40 MG INJ IV ×4 (05:00→23:48)
[2018-07-17 05:20] LABS: ADD MAN DIFF? NO
[2018-07-17 05:31] LABS: ABNORMAL IP MESSAGE 1; HEMOGLOBIN 9.7 g/dl (14.0-18.0); LYMPHOCYTES # 0.3 10^3/ul (0.8-2.9); LYMPHOCYTES % 8.9 % (15.0-51.0); MEAN CORPUSCULAR HEMOGLOBIN 28.3 pg (29.0-33.0); MEAN CORPUSCULAR HGB CONC 31.3 g/dl (32.0-37.0); MEAN CORPUSCULAR VOLUME 90.4 fl (82.0-101.0); MEAN PLATELET VOLUME 10.5 fl (7.4-10.4); MONOCYTE # 0.1 10^3/ul (0.3-0.9); MONOCYTES % 3.1 % (0.0-11.0); NEUTROPHIL # 2.8 10^3/ul (1.6-7.5); NEUTROPHILS % 86.8 % (39.0-77.0); PLATELET COUNT 66 10^3/UL (140-415); POSITIVE DIFF @See below; RED BLOOD COUNT 3.43 10^6/ul (4.70-6.10); RED CELL DISTRIBUTION WIDTH 15.9 % (11.5-14.5)
[2018-07-17 05:31] LABS: WHITE BLOOD COUNT 3.3 10^3/ul (4.8-10.8)
[2018-07-17 05:49] LABS: ANION GAP 4 (5-13); BLOOD UREA NITROGEN 39 mg/dl (7-20); CALCIUM 9.4 mg/dl (8.4-10.2); CARBON DIOXIDE 38 mmol/L (21-31); CHLORIDE 105 mmol/L (97-110); Estimated GFR > 60 mL/min (>60); GLUCOSE 131 mg/dl (70-220); MAGNESIUM 2.7 mg/dl (1.7-2.5); POTASSIUM 4.2 mmol/L (3.5-5.1); SODIUM 147 mmol/L (135-144)
[2018-07-17] MEDS: DEXTROSE 5% 1,000 ML IV (08:05)
[2018-07-17] MEDS: FAMOTIDINE 20 MG TAB PO ×2 (09:17→20:15)
[2018-07-17] MEDS: MEROPENEM 1 GM/50ML(PMX) 50 ML IVPB ×2 (09:17→20:21)
[2018-07-17] MEDS: DIVALPROEX (EC) 250 MG TAB PO ×3 (09:17→17:00)
[2018-07-17] MEDS: RISPERIDONE 1 MG TAB PO ×2 (09:17→20:15)
[2018-07-17] MEDS: ASPIRIN 81 MG TAB PO (09:17)
[2018-07-17] MEDS: AMLODIPINE 5 MG TAB PO (09:17)
[2018-07-17] MEDS: BALSAM PERU/CASTOR OIL 60 GM TUBE TOP (09:33)
[2018-07-17] MEDS: PROPOFOL 100 ML IV ×2 (11:00→22:35)
[2018-07-18] MEDS: DIVALPROEX (EC) 250 MG TAB PO ×3 (00:15→16:31)
[2018-07-18] MEDS: ALBUTEROL/IPRATROPIUM (NEB) 3 ML AMP HHN ×4 (01:37→19:39)
[2018-07-18] MEDS: LORAZEPAM 2 MG INJ IV (03:40)
[2018-07-18 04:50] LABS: ADD MAN DIFF? NO
[2018-07-18 04:53] LABS: ABNORMAL IP MESSAGE 1; LYMPHOCYTES # 0.3 10^3/ul (0.8-2.9); LYMPHOCYTES % 8.7 % (15.0-51.0); MEAN CORPUSCULAR HEMOGLOBIN 28.2 pg (29.0-33.0); MEAN CORPUSCULAR HGB CONC 31.3 g/dl (32.0-37.0); MEAN CORPUSCULAR VOLUME 90.1 fl (82.0-101.0); MEAN PLATELET VOLUME 10.8 fl (7.4-10.4); MONOCYTE # 0.1 10^3/ul (0.3-0.9); MONOCYTES % 2.4 % (0.0-11.0); NEUTROPHIL # 2.9 10^3/ul (1.6-7.5); PLATELET COUNT 69 10^3/UL (140-415); POSITIVE DIFF @See below; RED BLOOD COUNT 3.55 10^6/ul (4.70-6.10); RED CELL DISTRIBUTION WIDTH 16.1 % (11.5-14.5)
[2018-07-18 04:53] LABS: WHITE BLOOD COUNT 3.3 10^3/ul (4.8-10.8)
[2018-07-18] MEDS: DEXTROSE 5% 1,000 ML IV ×2 (05:05→20:17)
[2018-07-18] MEDS: METHYLPREDNISOLONE 40 MG INJ IV ×3 (05:05→18:35)
[2018-07-18 05:13] LABS: ANION GAP -3 (5-13); BLOOD UREA NITROGEN 35 mg/dl (7-20); CALCIUM 9.5 mg/dl (8.4-10.2); CHLORIDE 113 mmol/L (97-110); CREATININE 0.71 mg/dl (0.61-1.24); Estimated GFR > 60 mL/min (>60); GLUCOSE 137 mg/dl (70-220); SODIUM 150 mmol/L (135-144)
[2018-07-18 05:14] LABS: PHOSPHORUS 2.9 mg/dl (2.5-4.9)
[2018-07-18 05:14] LABS: MAGNESIUM 2.7 mg/dl (1.7-2.5)
[2018-07-18 05:21] LABS: CARBON DIOXIDE 40 mmol/L (21-31)
[2018-07-18] MEDS: AMLODIPINE 5 MG TAB PO (09:00)
[2018-07-18] MEDS: BALSAM PERU/CASTOR OIL 60 GM TUBE TOP (10:20)
[2018-07-18] MEDS: PROPOFOL 100 ML IV ×2 (10:20→23:00)
[2018-07-18] MEDS: MEROPENEM 1 GM/50ML(PMX) 50 ML IVPB ×2 (10:20→20:17)
[2018-07-18] MEDS: RISPERIDONE 1 MG TAB PO ×2 (10:35→20:17)
[2018-07-18] MEDS: ASPIRIN 81 MG TAB PO (10:46)
[2018-07-18] MEDS: FAMOTIDINE 20 MG TAB PO ×2 (10:49→20:17)
[2018-07-18 14:21] LABS: SODIUM 150 mmol/L (135-144)
[2018-07-18] MEDS: morphine LIQ (10 MG/5 ML) CUP PO (22:18)
[2018-07-19] MEDS: DIVALPROEX (EC) 250 MG TAB PO ×3 (01:00→16:58)
[2018-07-19] MEDS: ALBUTEROL/IPRATROPIUM (NEB) 3 ML AMP HHN ×4 (01:57→19:20)
[2018-07-19] MEDS: METHYLPREDNISOLONE 40 MG INJ IV ×4 (02:07→18:17)
[2018-07-19] MEDS: LORAZEPAM 2 MG INJ IV (02:07)
[2018-07-19 06:17] LABS: ADD MAN DIFF? NO
[2018-07-19 06:21] LABS: ABNORMAL IP MESSAGE 1; HEMATOCRIT 32.1 % (42.0-52.0); HEMOGLOBIN 9.8 g/dl (14.0-18.0); LYMPHOCYTES # 0.4 10^3/ul (0.8-2.9); LYMPHOCYTES % 8.7 % (15.0-51.0); MEAN CORPUSCULAR HEMOGLOBIN 27.8 pg (29.0-33.0); MEAN CORPUSCULAR HGB CONC 30.5 g/dl (32.0-37.0); MEAN CORPUSCULAR VOLUME 91.2 fl (82.0-101.0); MEAN PLATELET VOLUME 11.1 fl (7.4-10.4); MONOCYTE # 0.1 10^3/ul (0.3-0.9); MONOCYTES % 2.3 % (0.0-11.0); NEUTROPHIL # 3.9 10^3/ul (1.6-7.5); NEUTROPHILS % 88.5 % (39.0-77.0); PLATELET COUNT 65 10^3/UL (140-415); POSITIVE DIFF @See below; RED BLOOD COUNT 3.52 10^6/ul (4.70-6.10); RED CELL DISTRIBUTION WIDTH 16.2 % (11.5-14.5)
[2018-07-19 06:21] LABS: WHITE BLOOD COUNT 4.4 10^3/ul (4.8-10.8)
[2018-07-19 06:51] LABS: ANION GAP 1 (5-13); BLOOD UREA NITROGEN 32 mg/dl (7-20); CALCIUM 9.1 mg/dl (8.4-10.2); CARBON DIOXIDE 39 mmol/L (21-31); CHLORIDE 107 mmol/L (97-110); Estimated GFR > 60 mL/min (>60); GLUCOSE 111 mg/dl (70-220); MAGNESIUM 2.7 mg/dl (1.7-2.5); PHOSPHORUS 3.2 mg/dl (2.5-4.9); POTASSIUM 4.1 mmol/L (3.5-5.1); SODIUM 147 mmol/L (135-144)
[2018-07-19 08:29] LABS: AADO2 Arterial 102.5 mmHg (7.0-24.0); Allen Test ACCEPTAB; Arterial Base Excess 7.6 mmol/L (-3.0-3); Arterial Blood Gas Oxygen Sat 94.4 mmHG (95.0-98.0); Arterial COHb 0.6 % (0.0-3.0); Arterial Fraction of Oxyhgb 93.8 % (93.0-99.0); Arterial HCO3 34.3 mmol/L (22.0-26.0); Arterial MetHb 0 % (0.0-1.5); Arterial pCO2 58.4 mmhg (35-45); MODE NASAL CANNULA; Site Right Radial
[2018-07-19] MEDS: BALSAM PERU/CASTOR OIL 60 GM TUBE TOP (09:00)
[2018-07-19] MEDS: MEROPENEM 1 GM/50ML(PMX) 50 ML IVPB (10:10)
[2018-07-19] MEDS: PROPOFOL 100 ML IV (10:16)
[2018-07-19] MEDS: FAMOTIDINE 20 MG TAB PO ×2 (11:15→20:25)
[2018-07-19] MEDS: AMLODIPINE 5 MG TAB PO (11:15)
[2018-07-19] MEDS: ASPIRIN 81 MG TAB PO (11:15)
[2018-07-19] MEDS: DEXTROSE 5% 1,000 ML IV (13:00)
[2018-07-19] MEDS: RISPERIDONE 1 MG TAB PO (20:26)
[2018-07-19] MEDS: morphine LIQ (10 MG/5 ML) CUP PO (20:26)
[2018-07-19] MEDS: GUAIFENESIN/DM 5ML CUP PO (20:36)
[2018-07-20] MEDS: morphine LIQ (10 MG/5 ML) CUP PO (00:23)
[2018-07-20] MEDS: METHYLPREDNISOLONE 40 MG INJ IV ×5 (00:23→23:26)
[2018-07-20] MEDS: DIVALPROEX (EC) 250 MG TAB PO ×2 (00:23→09:47)
[2018-07-20] MEDS: DEXTROSE 5% 1,000 ML IV ×2 (00:28→13:20)
[2018-07-20] MEDS: ALBUTEROL/IPRATROPIUM (NEB) 3 ML AMP HHN ×4 (01:20→20:57)
[2018-07-20 03:02] LABS: AADO2 Arterial 586.6 mmHg (7.0-24.0); Arterial Base Excess 7.9 mmol/L (-3.0-3); Arterial Blood Gas Oxygen Sat 71.3 mmHG (95.0-98.0); Arterial COHb 0.6 % (0.0-3.0); Arterial Fraction of Oxyhgb 70.7 % (93.0-99.0); Arterial HCO3 37.5 mmol/L (22.0-26.0); Arterial MetHb 0.2 % (0.0-1.5); Arterial pCO2 83.5 mmhg (35-45); MODE MASK - NRB; Site Right Radial
[2018-07-20] MEDS: GUAIFENESIN/DM 5ML CUP PO (05:16)
[2018-07-20 08:02] LABS: AADO2 Arterial 298.3 mmHg (7.0-24.0); Arterial Base Excess 6.7 mmol/L (-3.0-3); Arterial Blood Gas Oxygen Sat 89.6 mmHG (95.0-98.0); Arterial COHb 0.2 % (0.0-3.0); Arterial Fraction of Oxyhgb 89.3 % (93.0-99.0); Arterial HCO3 34.4 mmol/L (22.0-26.0); Arterial MetHb 0.1 % (0.0-1.5); Arterial pCO2 65.9 mmhg (35-45); MODE MASK - SIMPLE; Site Right Radial
[2018-07-20] MEDS: BALSAM PERU/CASTOR OIL 60 GM TUBE TOP (09:00)
[2018-07-20] MEDS: FAMOTIDINE 20 MG TAB PO ×2 (09:47→21:20)
[2018-07-20] MEDS: ASPIRIN 81 MG TAB PO (09:47)
[2018-07-20] MEDS: RISPERIDONE 1 MG TAB PO ×2 (09:48→21:20)
[2018-07-20] MEDS: AMLODIPINE 5 MG TAB PO (09:48)
[2018-07-20] MEDS: DIVALPROEX SPRINKLE 125 MG CAP PO (21:00)
[2018-07-20] MEDS: LORAZEPAM 2 MG INJ IV (23:26)
[2018-07-21] MEDS: ALBUTEROL/IPRATROPIUM (NEB) 3 ML AMP HHN ×4 (01:38→20:03)
[2018-07-21] MEDS: DIVALPROEX SPRINKLE 125 MG CAP PO ×3 (04:40→20:48)
[2018-07-21] MEDS: HALOPERIDOL 5 MG INJ IM (04:41)
[2018-07-21 04:52] LABS: ADD MAN DIFF? NO
[2018-07-21 04:59] LABS: ABNORMAL IP MESSAGE 1; BASOPHILS % 0.2 % (0.0-2.0); EOSINOPHILS % 0.2 % (0.0-7.0); HEMATOCRIT 33.8 % (42.0-52.0); HEMOGLOBIN 10.3 g/dl (14.0-18.0); LYMPHOCYTES # 0.4 10^3/ul (0.8-2.9); LYMPHOCYTES % 5.9 % (15.0-51.0); MEAN CORPUSCULAR HEMOGLOBIN 27.9 pg (29.0-33.0); MEAN CORPUSCULAR HGB CONC 30.5 g/dl (32.0-37.0); MEAN CORPUSCULAR VOLUME 91.6 fl (82.0-101.0); MEAN PLATELET VOLUME 12.2 fl (7.4-10.4); MONOCYTE # 0.1 10^3/ul (0.3-0.9); MONOCYTES % 1.2 % (0.0-11.0); NEUTROPHILS % 91.3 % (39.0-77.0); PLATELET COUNT 53 10^3/UL (140-415); POSITIVE DIFF @See below; RED BLOOD COUNT 3.69 10^6/ul (4.70-6.10); RED CELL DISTRIBUTION WIDTH 15.9 % (11.5-14.5)
[2018-07-21 04:59] LABS: WHITE BLOOD COUNT 6.6 10^3/ul (4.8-10.8)
[2018-07-21 05:07] LABS: AADO2 Arterial 141.1 mmHg (7.0-24.0); Allen Test ACCEPTAB; Arterial Base Excess 11.8 mmol/L (-3.0-3); Arterial COHb 0.4 % (0.0-3.0); Arterial Fraction of Oxyhgb 95.4 % (93.0-99.0); Arterial HCO3 36.5 mmol/L (22.0-26.0); Arterial MetHb 0.2 % (0.0-1.5); Arterial pCO2 48.5 mmhg (35-45); MODE NASAL CANNULA; Site Left Radial
[2018-07-21 05:18] LABS: ANION GAP -2 (5-13); BLOOD UREA NITROGEN 38 mg/dl (7-20); CALCIUM 9.3 mg/dl (8.4-10.2); CHLORIDE 108 mmol/L (97-110); CREATININE 0.77 mg/dl (0.61-1.24); Estimated GFR > 60 mL/min (>60); GLUCOSE 206 mg/dl (70-220); POTASSIUM 4.6 mmol/L (3.5-5.1); SODIUM 146 mmol/L (135-144)
[2018-07-21 05:19] LABS: CARBON DIOXIDE 40 mmol/L (21-31)
[2018-07-21 05:22] LABS: LACTIC ACID 2.8 mmol/L (0.5-2.0)
[2018-07-21] MEDS: METHYLPREDNISOLONE 40 MG INJ IV ×4 (05:53→23:46)
[2018-07-21] MEDS: ASPIRIN 81 MG TAB PO (10:23)
[2018-07-21] MEDS: AMLODIPINE 5 MG TAB PO (10:24)
[2018-07-21] MEDS: FAMOTIDINE 20 MG TAB PO ×2 (10:24→20:49)
[2018-07-21] MEDS: RISPERIDONE 1 MG TAB PO ×2 (10:25→20:49)
[2018-07-21] MEDS: BALSAM PERU/CASTOR OIL 60 GM TUBE TOP (11:24)
[2018-07-21] MEDS: LORAZEPAM 2 MG INJ IV (13:05)
[2018-07-21 15:32] LABS: AADO2 Arterial 84.3 mmHg (7.0-24.0); Allen Test ACCEPTAB; Arterial Base Excess 10.6 mmol/L (-3.0-3); Arterial Blood Gas Oxygen Sat 96.6 mmHG (95.0-98.0); Arterial COHb 0.2 % (0.0-3.0); Arterial Fraction of Oxyhgb 96.1 % (93.0-99.0); Arterial HCO3 35.7 mmol/L (22.0-26.0); Arterial MetHb 0.3 % (0.0-1.5); MODE NASAL CANNULA; Site Right Radial
[2018-07-22] MEDS: HALOPERIDOL 5 MG INJ IM (00:44)
[2018-07-22] MEDS: ALBUTEROL/IPRATROPIUM (NEB) 3 ML AMP HHN ×4 (01:37→20:01)
[2018-07-22] MEDS: DIVALPROEX SPRINKLE 125 MG CAP PO ×3 (05:20→20:58)
[2018-07-22] MEDS: METHYLPREDNISOLONE 40 MG INJ IV ×3 (05:20→18:25)
[2018-07-22 06:15] LABS: ANION GAP 4 (5-13); BLOOD UREA NITROGEN 46 mg/dl (7-20); CALCIUM 9.6 mg/dl (8.4-10.2); CARBON DIOXIDE 38 mmol/L (21-31); CHLORIDE 112 mmol/L (97-110); Estimated GFR > 60 mL/min (>60); GLUCOSE 165 mg/dl (70-220); MAGNESIUM 2.9 mg/dl (1.7-2.5); PHOSPHORUS 2.8 mg/dl (2.5-4.9); POTASSIUM 3.6 mmol/L (3.5-5.1); SODIUM 154 mmol/L (135-144)
[2018-07-22] MEDS: DEXTROSE 5% 1,000 ML IV ×2 (06:50→20:52)
[2018-07-22] MEDS: morphine LIQ (10 MG/5 ML) CUP PO ×2 (08:04→12:44)
[2018-07-22] MEDS: AMLODIPINE 5 MG TAB PO (09:00)
[2018-07-22] MEDS: FAMOTIDINE 20 MG TAB PO ×2 (09:00→20:58)
[2018-07-22] MEDS: RISPERIDONE 1 MG TAB PO ×2 (09:00→20:58)
[2018-07-22] MEDS: ASPIRIN 81 MG TAB PO (09:00)
[2018-07-22] MEDS: BALSAM PERU/CASTOR OIL 60 GM TUBE TOP (10:00)
[2018-07-22] MEDS ORDERED: APIXABAN 5 MG TABLET PO (21:00)
[2018-07-23] MEDS: METHYLPREDNISOLONE 40 MG INJ IV ×5 (00:52→23:24)
[2018-07-23] MEDS: ALBUTEROL/IPRATROPIUM (NEB) 3 ML AMP HHN ×4 (02:11→20:18)
[2018-07-23] MEDS: DIVALPROEX SPRINKLE 125 MG CAP PO ×3 (04:14→20:41)
[2018-07-23 05:26] LABS: ADD MAN DIFF? NO
[2018-07-23 05:39] LABS: ABNORMAL IP MESSAGE 1; HEMATOCRIT 34.8 % (42.0-52.0); HEMOGLOBIN 10.6 g/dl (14.0-18.0); LYMPHOCYTES # 0.2 10^3/ul (0.8-2.9); LYMPHOCYTES % 4.3 % (15.0-51.0); MEAN CORPUSCULAR HGB CONC 30.5 g/dl (32.0-37.0); MEAN CORPUSCULAR VOLUME 92.1 fl (82.0-101.0); MEAN PLATELET VOLUME 10.6 fl (7.4-10.4); MONOCYTE # 0.1 10^3/ul (0.3-0.9); MONOCYTES % 2.3 % (0.0-11.0); NEUTROPHIL # 5.2 10^3/ul (1.6-7.5); NEUTROPHILS % 92.9 % (39.0-77.0); PLATELET COUNT 47 10^3/UL (140-415); POSITIVE DIFF @See below; RED BLOOD COUNT 3.78 10^6/ul (4.70-6.10); RED CELL DISTRIBUTION WIDTH 16.9 % (11.5-14.5)
[2018-07-23 05:39] LABS: WHITE BLOOD COUNT 5.6 10^3/ul (4.8-10.8)
[2018-07-23 05:47] LABS: BLOOD UREA NITROGEN 42 mg/dl (7-20); CALCIUM 9.3 mg/dl (8.4-10.2); CHLORIDE 112 mmol/L (97-110); CREATININE 0.87 mg/dl (0.61-1.24); Estimated GFR > 60 mL/min (>60); GLUCOSE 167 mg/dl (70-220); MAGNESIUM 2.8 mg/dl (1.7-2.5); PHOSPHORUS 3.5 mg/dl (2.5-4.9); POTASSIUM 3.9 mmol/L (3.5-5.1); SODIUM 154 mmol/L (135-144)
[2018-07-23 05:53] LABS: ANION GAP 2 (5-13)
[2018-07-23 06:28] LABS: CARBON DIOXIDE 40 mmol/L (21-31)
[2018-07-23] MEDS: DEXTROSE 5% 1,000 ML IV ×3 (06:44→23:19)
[2018-07-23] MEDS: RISPERIDONE 1 MG TAB PO ×2 (09:00→20:41)
[2018-07-23] MEDS: AMLODIPINE 5 MG TAB PO (09:00)
[2018-07-23] MEDS: FAMOTIDINE 20 MG TAB PO ×2 (09:00→20:41)
[2018-07-23] MEDS: ASPIRIN 81 MG TAB PO (09:00)
[2018-07-23] MEDS: BALSAM PERU/CASTOR OIL 60 GM TUBE TOP (09:54)
[2018-07-23 11:59] LABS: ADD UMIC YES; UR ASCORBIC ACID NEGATIVE (NEGATIVE); UR BILIRUBIN (Dip) NEGATIVE (NEGATIVE); UR BLOOD (Dip) 2+ mg/dL (NEGATIVE); UR CLARITY CLEAR (CLEAR); UR COLOR STRAW (YELLOW); UR GLUCOSE (Dip) 1+ mg/dL (NEGATIVE); UR KETONES (Dip) NEGATIVE (NEGATIVE); UR LEUKOCYTE ESTERASE (Dip) NEGATIVE Leu/ul (NEGATIVE); UR NITRITE (Dip) NEGATIVE (NEGATIVE); UR RBC 4 /HPF (0-5); UR SPECIFIC GRAVITY (Dip) 1.009 (1.003-1.030); UR TOTAL PROTEIN (Dip) NEGATIVE (NEGATIVE); UR UROBILINOGEN (Dip) NEGATIVE (NEGATIVE); UR WBC 1 /HPF (0-5)
[2018-07-23 12:04] LABS: TYPE AND SCREEN 1 1
[2018-07-23 12:25] LABS: SODIUM,URINE RANDOM 35 mmol/L (30-90)
[2018-07-23 12:27] LABS: CREATININE,URINE RANDOM 24.08 mg/dl (20-370)
[2018-07-23 13:54] LABS: OSMOLALITY,URINE 294 mOsm/kg (250-1200)
[2018-07-23] MEDS ORDERED: PROPOFOL 100 ML (14:58)
[2018-07-23 14:59] LABS: BLOOD UREA NITROGEN 40 mg/dl (7-20); CALCIUM 8.9 mg/dl (8.4-10.2); CHLORIDE 110 mmol/L (97-110); CREATININE 0.74 mg/dl (0.61-1.24); Estimated GFR > 60 mL/min (>60); GLUCOSE 149 mg/dl (70-220); POTASSIUM 3.6 mmol/L (3.5-5.1); SODIUM 151 mmol/L (135-144)
[2018-07-23] MEDS ORDERED: PROPOFOL 100 ML IV (15:00)
[2018-07-23 15:05] LABS: ANION GAP 3 (5-13)
[2018-07-23 15:08] LABS: CARBON DIOXIDE 38 mmol/L (21-31)
[2018-07-23] MEDS: PROPOFOL 100 ML IV (15:08)
[2018-07-23 16:20] LABS: AADO2 Arterial 266.5 mmHg (7.0-24.0); Allen Test ACCEPTAB; Arterial Base Excess 11.2 mmol/L (-3.0-3); Arterial COHb 0.3 % (0.0-3.0); Arterial Fraction of Oxyhgb 98.4 % (93.0-99.0); Arterial HCO3 35.5 mmol/L (22.0-26.0); Arterial MetHb 0.3 % (0.0-1.5); Arterial pCO2 45.7 mmhg (35-45); MODE VENT - AC; Site Right Radial
[2018-07-23] MEDS: CEFAZOLIN 1 GM/50 ML (PMX) 50 ML IVPB (18:11)
[2018-07-23] MEDS: PROPOFOL 20 ML (18:15)
[2018-07-23] MEDS: PHENYLephrine (100 MCG/ML) 5ML SYG (18:16)
[2018-07-23 18:30] LABS: INR 1.01; PARTIAL THROMBOPLASTIN TIME 28.5 Sec (23.0-35.0); PROTIME 13.4 Sec (11.9-14.9)
[2018-07-24] MEDS: ALBUTEROL/IPRATROPIUM (NEB) 3 ML AMP HHN ×3 (02:15→19:16)
[2018-07-24] MEDS: PROPOFOL 100 ML IV ×2 (04:14→12:10)
[2018-07-24] MEDS: DIVALPROEX SPRINKLE 125 MG CAP PO ×3 (04:15→21:22)
[2018-07-24 05:12] LABS: ABNORMAL IP MESSAGE 1; ADD MAN DIFF? NO; HEMATOCRIT 29.1 % (42.0-52.0); HEMOGLOBIN 8.7 g/dl (14.0-18.0); LYMPHOCYTES # 0.3 10^3/ul (0.8-2.9); LYMPHOCYTES % 6.1 % (15.0-51.0); MEAN CORPUSCULAR HEMOGLOBIN 27.8 pg (29.0-33.0); MEAN CORPUSCULAR HGB CONC 29.9 g/dl (32.0-37.0); MEAN PLATELET VOLUME 11.2 fl (7.4-10.4); MONOCYTE # 0.2 10^3/ul (0.3-0.9); MONOCYTES % 3.6 % (0.0-11.0); NEUTROPHIL # 3.7 10^3/ul (1.6-7.5); NEUTROPHILS % 89.8 % (39.0-77.0); PLATELET COUNT 85 10^3/UL (140-415); POSITIVE DIFF @See below; RED BLOOD COUNT 3.13 10^6/ul (4.70-6.10)
[2018-07-24 05:12] LABS: WHITE BLOOD COUNT 4.1 10^3/ul (4.8-10.8)
[2018-07-24] MEDS: METHYLPREDNISOLONE 40 MG INJ IV ×4 (05:50→23:53)
[2018-07-24 05:52] LABS: ANION GAP 2 (5-13); BLOOD UREA NITROGEN 39 mg/dl (7-20); CALCIUM 8.5 mg/dl (8.4-10.2); CHLORIDE 109 mmol/L (97-110); CREATININE 0.79 mg/dl (0.61-1.24); Estimated GFR > 60 mL/min (>60); GLUCOSE 179 mg/dl (70-220); MAGNESIUM 2.6 mg/dl (1.7-2.5); PHOSPHORUS 3.1 mg/dl (2.5-4.9); POTASSIUM 3.4 mmol/L (3.5-5.1); SODIUM 151 mmol/L (135-144)
[2018-07-24 05:55] LABS: CARBON DIOXIDE 40 mmol/L (21-31)
[2018-07-24 08:13] LABS: AADO2 Arterial 241.4 mmHg (7.0-24.0); Allen Test ACCEPTAB; Arterial Base Excess 11.8 mmol/L (-3.0-3); Arterial Blood Gas Oxygen Sat 89.4 mmHG (95.0-98.0); Arterial COHb 0.3 % (0.0-3.0); Arterial Fraction of Oxyhgb 88.9 % (93.0-99.0); Arterial HCO3 36.6 mmol/L (22.0-26.0); Arterial MetHb 0.3 % (0.0-1.5); Arterial pCO2 49.1 mmhg (35-45); MODE VENT - AC; Site Right Radial
[2018-07-24] MEDS: RISPERIDONE 1 MG TAB PO ×2 (08:15→21:22)
[2018-07-24] MEDS: FAMOTIDINE 20 MG TAB PO ×2 (08:15→21:22)
[2018-07-24] MEDS: ASPIRIN 81 MG TAB PO (08:15)
[2018-07-24] MEDS: BALSAM PERU/CASTOR OIL 60 GM TUBE TOP (08:16)
[2018-07-24] MEDS: AMLODIPINE 5 MG TAB PO (08:16)
[2018-07-24] MEDS: POTASSIUM CHLORIDE 100 ML IVPB ×2 (08:18→10:48)
[2018-07-24] MEDS: DEXTROSE 5% 1,000 ML IV (08:23)
[2018-07-24] MEDS: DESMOPRESSIN 4 MCG INJ IV ×2 (10:48→21:22)
[2018-07-24 14:41] LABS: ANION GAP 1 (5-13); BLOOD UREA NITROGEN 40 mg/dl (7-20); CALCIUM 8.5 mg/dl (8.4-10.2); CARBON DIOXIDE 38 mmol/L (21-31); CHLORIDE 110 mmol/L (97-110); CREATININE 0.96 mg/dl (0.61-1.24); Estimated GFR > 60 mL/min (>60); GLUCOSE 138 mg/dl (70-220); POTASSIUM 4.3 mmol/L (3.5-5.1); SODIUM 149 mmol/L (135-144)
[2018-07-24 16:12] LABS: CREATININE, RANDOM URINE 28 mg/dL (20-320); MICROALBUMIN 5.2 mg/dL; MICROALBUMIN/CREATININE RATIO 186 (<30)
[2018-07-25] MEDS: PROPOFOL 100 ML IV ×2 (01:14→15:30)
[2018-07-25] MEDS: ALBUTEROL/IPRATROPIUM (NEB) 3 ML AMP HHN ×4 (01:26→19:17)
[2018-07-25] MEDS: LORAZEPAM 2 MG INJ IV (02:58)
[2018-07-25] MEDS: DEXTROSE 5% 1,000 ML IV (04:19)
[2018-07-25] MEDS: DIVALPROEX SPRINKLE 125 MG CAP PO ×3 (04:19→20:35)
[2018-07-25 05:29] LABS: ADD MAN DIFF? NO
[2018-07-25 05:42] LABS: ABNORMAL IP MESSAGE 1; HEMATOCRIT 28.3 % (42.0-52.0); HEMOGLOBIN 8.6 g/dl (14.0-18.0); LYMPHOCYTES # 0.3 10^3/ul (0.8-2.9); LYMPHOCYTES % 8.1 % (15.0-51.0); MEAN CORPUSCULAR HGB CONC 30.4 g/dl (32.0-37.0); MEAN CORPUSCULAR VOLUME 92.2 fl (82.0-101.0); MEAN PLATELET VOLUME 11.1 fl (7.4-10.4); MONOCYTE # 0.1 10^3/ul (0.3-0.9); MONOCYTES % 2.9 % (0.0-11.0); NEUTROPHIL # 3.1 10^3/ul (1.6-7.5); NEUTROPHILS % 88.7 % (39.0-77.0); PLATELET COUNT 61 10^3/UL (140-415); POSITIVE DIFF @See below; RED BLOOD COUNT 3.07 10^6/ul (4.70-6.10); RED CELL DISTRIBUTION WIDTH 16.8 % (11.5-14.5)
[2018-07-25 05:42] LABS: WHITE BLOOD COUNT 3.5 10^3/ul (4.8-10.8)
[2018-07-25] MEDS: METHYLPREDNISOLONE 40 MG INJ IV ×4 (05:46→23:23)
[2018-07-25 06:30] LABS: ANION GAP 4 (5-13); BLOOD UREA NITROGEN 45 mg/dl (7-20); CALCIUM 8.5 mg/dl (8.4-10.2); CARBON DIOXIDE 37 mmol/L (21-31); CHLORIDE 106 mmol/L (97-110); Estimated GFR > 60 mL/min (>60); GLUCOSE 171 mg/dl (70-220); MAGNESIUM 2.7 mg/dl (1.7-2.5); PHOSPHORUS 3.5 mg/dl (2.5-4.9); SODIUM 147 mmol/L (135-144)
[2018-07-25 07:57] LABS: Allen Test ACCEPTAB; Arterial Base Excess 8.3 mmol/L (-3.0-3); Arterial Blood Gas Oxygen Sat 96.8 mmHG (95.0-98.0); Arterial COHb 0.3 % (0.0-3.0); Arterial Fraction of Oxyhgb 96.3 % (93.0-99.0); Arterial HCO3 33.2 mmol/L (22.0-26.0); Arterial MetHb 0.2 % (0.0-1.5); Arterial pCO2 48.3 mmhg (35-45); MODE VENT - AC; Site Right Radial
[2018-07-25] MEDS: AMLODIPINE 5 MG TAB PO (08:24)
[2018-07-25] MEDS: FAMOTIDINE 20 MG TAB PO ×2 (08:24→20:35)
[2018-07-25] MEDS: ASPIRIN 81 MG TAB PO (08:24)
[2018-07-25] MEDS: RISPERIDONE 1 MG TAB PO ×2 (08:24→20:36)
[2018-07-25] MEDS: DESMOPRESSIN 4 MCG INJ IV ×2 (08:25→20:36)
[2018-07-25] MEDS: BALSAM PERU/CASTOR OIL 60 GM TUBE TOP (08:25)
[2018-07-25] MEDS: DEXMEDETOMIDINE HCL 200 MCG in SOD CHLORIDE 0.9% 48 ML IV ×2 (10:24→17:26)
[2018-07-25 10:41] LABS: OSMOLALITY,URINE 400 mOsm/kg (250-1200)
[2018-07-25] MEDS: ASCORBIC ACID 500 MG TAB GTB (14:02)
[2018-07-25] MEDS: CEFEPIME 1GM/50 ML (PMX) 50 ML IVPB ×2 (14:02→20:34)
[2018-07-25] MEDS: SOD CHLORIDE 0.9% 500 ML IV (14:03)
[2018-07-25 14:22] LABS: ANION GAP 2 (5-13); BLOOD UREA NITROGEN 49 mg/dl (7-20); CALCIUM 8.4 mg/dl (8.4-10.2); CARBON DIOXIDE 34 mmol/L (21-31); CHLORIDE 106 mmol/L (97-110); CREATININE 0.88 mg/dl (0.61-1.24); Estimated GFR > 60 mL/min (>60); GLUCOSE 140 mg/dl (70-220); SODIUM 142 mmol/L (135-144)
[2018-07-25] MEDS: SOD CHLORIDE 0.9% 1,000 ML IV ×2 (15:06)
[2018-07-25] MEDS: PHENYLephrine 20MG IN 250 ML 250 ML IV (22:04)
[2018-07-26] MEDS: ALBUTEROL/IPRATROPIUM (NEB) 3 ML AMP HHN ×2 (01:30→08:10)
[2018-07-26] MEDS: PHENYLephrine 80 MG in DEXTROSE 5% 242 ML IV ×3 (01:51→21:39)
[2018-07-26] MEDS: PROPOFOL 100 ML IV ×2 (02:58→15:30)
[2018-07-26] MEDS: DEXMEDETOMIDINE HCL 200 MCG in SOD CHLORIDE 0.9% 48 ML IV ×6 (03:21→21:37)
[2018-07-26] MEDS: DIVALPROEX SPRINKLE 125 MG CAP PO ×3 (05:01→21:24)
[2018-07-26] MEDS: METHYLPREDNISOLONE 40 MG INJ IV ×3 (05:04→17:11)
[2018-07-26 05:24] LABS: ABNORMAL IP MESSAGE 1; HEMATOCRIT 29.7 % (42.0-52.0); HEMOGLOBIN 8.9 g/dl (14.0-18.0); MEAN CORPUSCULAR HEMOGLOBIN 27.9 pg (29.0-33.0); MEAN CORPUSCULAR VOLUME 93.1 fl (82.0-101.0); MEAN PLATELET VOLUME 11.6 fl (7.4-10.4); PLATELET COUNT 82 10^3/UL (140-415); POSITIVE DIFF @See below; RED BLOOD COUNT 3.19 10^6/ul (4.70-6.10); RED CELL DISTRIBUTION WIDTH 16.9 % (11.5-14.5)
[2018-07-26 05:24] LABS: WHITE BLOOD COUNT 7.3 10^3/ul (4.8-10.8)
[2018-07-26 05:36] LABS: ADD MAN DIFF? YES
[2018-07-26 05:56] LABS: LACTIC ACID 1.7 mmol/L (0.5-2.0)
[2018-07-26 06:07] LABS: ANION GAP 4 (5-13); BLOOD UREA NITROGEN 44 mg/dl (7-20); CALCIUM 8.4 mg/dl (8.4-10.2); CARBON DIOXIDE 32 mmol/L (21-31); CHLORIDE 111 mmol/L (97-110); Estimated GFR > 60 mL/min (>60); GLUCOSE 197 mg/dl (70-220); MAGNESIUM 2.6 mg/dl (1.7-2.5); PHOSPHORUS 3.7 mg/dl (2.5-4.9); POTASSIUM 4.1 mmol/L (3.5-5.1); SODIUM 147 mmol/L (135-144)
[2018-07-26 07:31] LABS: ANISOCYTOSIS 1+ (0-0); BAND NEUTROPHILS % (M) 15 % (0-4); LYMPHOCYTES #M 0.1 10^3/ul (0.8-2.9); LYMPHOCYTES % (M) 2 % (15-51); MONOCYTE #M 0.1 10^3/ul (0.3-0.9); MONOCYTES % (M) 2 % (0-11); PLATELET ESTIMATE DECREASED; POIKILOCYTOSIS 1+ (0-0); SEGMENTED NEUTROPHILS (M) % 81 % (39-77); SMUDGE%M 16 % (0-0)
[2018-07-26] MEDS: morphine LIQ (10 MG/5 ML) CUP PO ×2 (08:35→12:53)
[2018-07-26] MEDS: ASPIRIN 81 MG TAB PO (08:42)
[2018-07-26] MEDS: ASCORBIC ACID 500 MG TAB GTB (08:42)
[2018-07-26] MEDS: RISPERIDONE 1 MG TAB PO ×2 (08:42→21:24)
[2018-07-26] MEDS: FAMOTIDINE 20 MG TAB PO ×2 (08:42→21:24)
[2018-07-26] MEDS: DESMOPRESSIN 4 MCG INJ IV (08:43)
[2018-07-26] MEDS: CEFEPIME HCL 1 GM in DEXTROSE 5% 50 ML IVPB (08:43)
[2018-07-26] MEDS: BALSAM PERU/CASTOR OIL 60 GM TUBE TOP (08:43)
[2018-07-26] MEDS ORDERED: AMLODIPINE 2.5 MG TAB PO (09:00)
[2018-07-26] MEDS: SOD CHLORIDE 0.9% 1,000 ML IV (10:30)
[2018-07-26] MEDS: LEVOFLOXACIN 500MG/D5W (PMX) 100 ML IVPB (12:52)
[2018-07-26] MEDS: IPRATROPIUM (HFA) 12.9 GM INHALER INH ×2 (13:02→21:15)
[2018-07-26] MEDS: ALBUTEROL HFA 8 GM INHALER INH ×2 (13:03→21:15)
[2018-07-26 14:52] LABS: ANION GAP 1 (5-13); BLOOD UREA NITROGEN 40 mg/dl (7-20); CALCIUM 8.4 mg/dl (8.4-10.2); CARBON DIOXIDE 33 mmol/L (21-31); CHLORIDE 112 mmol/L (97-110); Estimated GFR > 60 mL/min (>60); GLUCOSE 156 mg/dl (70-220); POTASSIUM 4.4 mmol/L (3.5-5.1); SODIUM 146 mmol/L (135-144)
[2018-07-27] MEDS: METHYLPREDNISOLONE 40 MG INJ IV ×4 (00:23→18:25)
[2018-07-27] MEDS: DEXMEDETOMIDINE HCL 200 MCG in SOD CHLORIDE 0.9% 48 ML IV ×3 (00:41→06:40)
[2018-07-27] MEDS: IPRATROPIUM (HFA) 12.9 GM INHALER INH ×4 (01:32→19:36)
[2018-07-27] MEDS: ALBUTEROL HFA 8 GM INHALER INH ×4 (01:33→19:36)
[2018-07-27] MEDS: PROPOFOL 100 ML IV ×2 (03:30→15:30)
[2018-07-27 05:04] LABS: ADD MAN DIFF? NO
[2018-07-27 05:24] LABS: ABNORMAL IP MESSAGE 1; HEMATOCRIT 27.6 % (42.0-52.0); HEMOGLOBIN 8.3 g/dl (14.0-18.0); LYMPHOCYTES # 0.2 10^3/ul (0.8-2.9); MEAN CORPUSCULAR HEMOGLOBIN 28.3 pg (29.0-33.0); MEAN CORPUSCULAR HGB CONC 30.1 g/dl (32.0-37.0); MEAN CORPUSCULAR VOLUME 94.2 fl (82.0-101.0); MEAN PLATELET VOLUME 12.3 fl (7.4-10.4); MONOCYTE # 0.1 10^3/ul (0.3-0.9); MONOCYTES % 2.8 % (0.0-11.0); NEUTROPHIL # 1.9 10^3/ul (1.6-7.5); NEUTROPHILS % 89.7 % (39.0-77.0); PLATELET COUNT 43 10^3/UL (140-415); POSITIVE DIFF @See below; RED BLOOD COUNT 2.93 10^6/ul (4.70-6.10)
[2018-07-27 05:24] LABS: WHITE BLOOD COUNT 2.1 10^3/ul (4.8-10.8)
[2018-07-27] MEDS: DIVALPROEX SPRINKLE 125 MG CAP PO ×3 (05:28→21:13)
[2018-07-27 05:38] LABS: ANION GAP 1 (5-13); BLOOD UREA NITROGEN 44 mg/dl (7-20); CALCIUM 8.6 mg/dl (8.4-10.2); CARBON DIOXIDE 34 mmol/L (21-31); CHLORIDE 116 mmol/L (97-110); CREATININE 0.75 mg/dl (0.61-1.24); Estimated GFR > 60 mL/min (>60); GLUCOSE 214 mg/dl (70-220); MAGNESIUM 2.7 mg/dl (1.7-2.5); PHOSPHORUS 2.6 mg/dl (2.5-4.9); POTASSIUM 4.7 mmol/L (3.5-5.1); SODIUM 151 mmol/L (135-144)
[2018-07-27] MEDS: SOD CHLORIDE 0.9% 1,000 ML IV (06:41)
[2018-07-27] MEDS: ASCORBIC ACID 500 MG TAB GTB (08:28)
[2018-07-27] MEDS: SOD CHLORIDE 0.45% 1,000 ML IV ×3 (08:28→21:15)
[2018-07-27] MEDS: FAMOTIDINE 20 MG TAB PO ×2 (08:29→21:13)
[2018-07-27] MEDS: DESMOPRESSIN 4 MCG INJ IV ×2 (08:29→21:13)
[2018-07-27] MEDS: ASPIRIN 81 MG TAB PO (08:29)
[2018-07-27] MEDS: BALSAM PERU/CASTOR OIL 60 GM TUBE TOP (08:30)
[2018-07-27] MEDS: RISPERIDONE 1 MG TAB PO ×2 (08:30→21:14)
[2018-07-27 09:16] LABS: ANISOCYTOSIS 1+ (0-0); BAND NEUTROPHILS #M 0.2 10^3/ul (0.0-0.6); BAND NEUTROPHILS % (M) 11 % (0-4); ERYTHROBLAST% (NRBC) (M) 1 % (0-0); GIANT THROMBO% (M) 1 % (0-0); LYMPHOCYTES #M 0.2 10^3/ul (0.8-2.9); LYMPHOCYTES % (M) 10 % (15-51); MICROCYTOSIS 1+ (0-0); OVALOCYTES 1+ (0-0); PLATELET ESTIMATE SIG DECREASED; POIKILOCYTOSIS 1+ (0-0); POLYCHROMASIA 1+ (0-0); SEG NEUT #M 1.7 10^3/ul (1.6-7.5); SEGMENTED NEUTROPHILS (M) % 79 % (39-77); SMUDGE%M 6 % (0-0)
[2018-07-27] MEDS: MIDAZOLAM (DRIP) 50 mg/50 mL 50 ML IV ×2 (10:49→23:49)
[2018-07-27] MEDS: LEVOFLOXACIN 500MG/D5W (PMX) 100 ML IVPB (13:40)
[2018-07-27 14:10] LABS: ANION GAP 7 (5-13); BLOOD UREA NITROGEN 44 mg/dl (7-20); CALCIUM 8.6 mg/dl (8.4-10.2); CARBON DIOXIDE 32 mmol/L (21-31); CHLORIDE 112 mmol/L (97-110); CREATININE 0.77 mg/dl (0.61-1.24); Estimated GFR > 60 mL/min (>60); GLUCOSE 187 mg/dl (70-220); POTASSIUM 4.4 mmol/L (3.5-5.1); SODIUM 151 mmol/L (135-144)
[2018-07-27 19:10] LABS: OSMOLALITY,URINE 284 mOsm/kg (250-1200)
[2018-07-27 19:16] LABS: SODIUM,URINE RANDOM 27 mmol/L (30-90)
[2018-07-27 19:20] LABS: CREATININE,URINE RANDOM < 12.40 mg/dl (20-370)
[2018-07-27 23:01] LABS: ADD UMIC NO; UR ASCORBIC ACID NEGATIVE (NEGATIVE); UR BILIRUBIN (Dip) NEGATIVE (NEGATIVE); UR BLOOD (Dip) NEGATIVE (NEGATIVE); UR CLARITY CLEAR (CLEAR); UR COLOR YELLOW (YELLOW); UR GLUCOSE (Dip) 3+ mg/dL (NEGATIVE); UR KETONES (Dip) NEGATIVE (NEGATIVE); UR LEUKOCYTE ESTERASE (Dip) NEGATIVE Leu/ul (NEGATIVE); UR NITRITE (Dip) NEGATIVE (NEGATIVE); UR SPECIFIC GRAVITY (Dip) 1.006 (1.003-1.030); UR TOTAL PROTEIN (Dip) NEGATIVE (NEGATIVE); UR UROBILINOGEN (Dip) NEGATIVE (NEGATIVE)
[2018-07-28] MEDS: METHYLPREDNISOLONE 40 MG INJ IV ×5 (00:12→23:39)
[2018-07-28] MEDS: IPRATROPIUM (HFA) 12.9 GM INHALER INH ×4 (01:03→19:20)
[2018-07-28] MEDS: ALBUTEROL HFA 8 GM INHALER INH ×4 (01:03→19:20)
[2018-07-28] MEDS: PROPOFOL 100 ML IV ×2 (03:30→15:30)
[2018-07-28] MEDS: DIVALPROEX SPRINKLE 125 MG CAP PO ×4 (05:11→20:55)
[2018-07-28 05:32] LABS: ABNORMAL IP MESSAGE 1; HEMATOCRIT 27.7 % (42.0-52.0); HEMOGLOBIN 8.3 g/dl (14.0-18.0); MEAN CORPUSCULAR HEMOGLOBIN 28.2 pg (29.0-33.0); MEAN CORPUSCULAR VOLUME 94.2 fl (82.0-101.0); PLATELET COUNT 38 10^3/UL (140-415); POSITIVE DIFF @See below; RED BLOOD COUNT 2.94 10^6/ul (4.70-6.10); RED CELL DISTRIBUTION WIDTH 17.1 % (11.5-14.5)
[2018-07-28 05:34] LABS: ADD MAN DIFF? YES
[2018-07-28 06:01] LABS: ANION GAP 7 (5-13); BLOOD UREA NITROGEN 45 mg/dl (7-20); CALCIUM 8.4 mg/dl (8.4-10.2); CARBON DIOXIDE 32 mmol/L (21-31); CHLORIDE 109 mmol/L (97-110); CREATININE 0.76 mg/dl (0.61-1.24); Estimated GFR > 60 mL/min (>60); GLUCOSE 202 mg/dl (70-220); MAGNESIUM 2.5 mg/dl (1.7-2.5); PHOSPHORUS 2.3 mg/dl (2.5-4.9); POTASSIUM 4.6 mmol/L (3.5-5.1); SODIUM 148 mmol/L (135-144)
[2018-07-28] MEDS: SOD CHLORIDE 0.45% 1,000 ML IV ×2 (07:19→17:11)
[2018-07-28] MEDS: FAMOTIDINE 20 MG TAB PO ×2 (08:44→20:54)
[2018-07-28] MEDS: RISPERIDONE 1 MG TAB PO ×2 (08:45→20:53)
[2018-07-28] MEDS: BALSAM PERU/CASTOR OIL 60 GM TUBE TOP (08:45)
[2018-07-28] MEDS: ASPIRIN 81 MG TAB PO (08:45)
[2018-07-28] MEDS: DESMOPRESSIN 4 MCG INJ IV ×2 (08:45→20:53)
[2018-07-28] MEDS: ASCORBIC ACID 500 MG TAB GTB (08:45)
[2018-07-28] MEDS: HYDROCHLOROTHIAZIDE 25 MG TAB GTB (08:59)
[2018-07-28 11:21] LABS: ANISOCYTOSIS 1+ (0-0); BAND NEUTROPHILS #M 0.2 10^3/ul (0.0-0.6); BAND NEUTROPHILS % (M) 14 % (0-4); BASOPHILS % (M) 1 % (0-2); BURR CELLS 1+ (0-0); EOSINOPHILS % (M) 1 % (0-7); ERYTHROBLAST% (NRBC) (M) 1 % (0-0); GIANT THROMBO% (M) 1 % (0-0); LYMPHOCYTES #M 0.2 10^3/ul (0.8-2.9); LYMPHOCYTES % (M) 10 % (15-51); MICROCYTOSIS 1+ (0-0); MONOCYTES % (M) 3 % (0-11); OVALOCYTES 1+ (0-0); PLATELET ESTIMATE SIG DECREASED; POIKILOCYTOSIS 1+ (0-0); POLYCHROMASIA 1+ (0-0); SEG NEUT #M 1.4 10^3/ul (1.6-7.5); SEGMENTED NEUTROPHILS (M) % 71 % (39-77); SMUDGE%M 3 % (0-0)
[2018-07-28] MEDS: LEVOFLOXACIN 500MG/D5W (PMX) 100 ML IVPB (11:30)
[2018-07-28 12:21] LABS: PATH REVIEW? YES
[2018-07-28 14:49] LABS: ANION GAP 7 (5-13); BLOOD UREA NITROGEN 55 mg/dl (7-20); CALCIUM 8.3 mg/dl (8.4-10.2); CARBON DIOXIDE 32 mmol/L (21-31); CHLORIDE 106 mmol/L (97-110); CREATININE 0.86 mg/dl (0.61-1.24); Estimated GFR > 60 mL/min (>60); GLUCOSE 229 mg/dl (70-220); SODIUM 145 mmol/L (135-144)
[2018-07-28] MEDS: MIDAZOLAM (DRIP) 50 mg/50 mL 50 ML IV (17:11)
[2018-07-29] MEDS: ALBUTEROL HFA 8 GM INHALER INH ×2 (01:54→08:32)
[2018-07-29] MEDS: IPRATROPIUM (HFA) 12.9 GM INHALER INH ×2 (01:54→08:32)
[2018-07-29] MEDS: PROPOFOL 100 ML IV (03:30)
[2018-07-29] MEDS: SOD CHLORIDE 0.45% 1,000 ML IV (03:49)
[2018-07-29] MEDS: METHYLPREDNISOLONE 40 MG INJ IV ×2 (05:10→11:08)
[2018-07-29] MEDS: DIVALPROEX SPRINKLE 125 MG CAP PO ×2 (05:10→12:03)
[2018-07-29 05:27] LABS: ADD MAN DIFF? NO
[2018-07-29 05:33] LABS: ABNORMAL IP MESSAGE 1; LYMPHOCYTES # 0.2 10^3/ul (0.8-2.9); LYMPHOCYTES % 7.6 % (15.0-51.0); MEAN CORPUSCULAR HEMOGLOBIN 28.7 pg (29.0-33.0); MEAN CORPUSCULAR HGB CONC 30.4 g/dl (32.0-37.0); MEAN CORPUSCULAR VOLUME 94.3 fl (82.0-101.0); MEAN PLATELET VOLUME 12.5 fl (7.4-10.4); MONOCYTE # 0.1 10^3/ul (0.3-0.9); MONOCYTES % 2.9 % (0.0-11.0); NEUTROPHIL # 2.1 10^3/ul (1.6-7.5); NEUTROPHILS % 88.7 % (39.0-77.0); NUCLEATED RED BLOOD CELLS% 0.8 /100WBC (0.0-0.0); POSITIVE DIFF @See below; RED BLOOD COUNT 2.44 10^6/ul (4.70-6.10); RED CELL DISTRIBUTION WIDTH 16.6 % (11.5-14.5)
[2018-07-29 05:48] LABS: PLATELET COUNT 37 10^3/UL (140-415)
[2018-07-29 05:48] LABS: WHITE BLOOD COUNT 2.4 10^3/ul (4.8-10.8)
[2018-07-29 05:54] LABS: ANION GAP -3 (5-13); BLOOD UREA NITROGEN 68 mg/dl (7-20); CARBON DIOXIDE 35 mmol/L (21-31); CHLORIDE 110 mmol/L (97-110); CREATININE 0.78 mg/dl (0.61-1.24); Estimated GFR > 60 mL/min (>60); GLUCOSE 217 mg/dl (70-220); MAGNESIUM 2.6 mg/dl (1.7-2.5); PHOSPHORUS 2.3 mg/dl (2.5-4.9); SODIUM 142 mmol/L (135-144)
[2018-07-29] MEDS: RISPERIDONE 1 MG TAB PO (08:20)
[2018-07-29] MEDS: ASPIRIN 81 MG TAB PO (08:20)
[2018-07-29] MEDS: ASCORBIC ACID 500 MG TAB GTB (08:20)
[2018-07-29] MEDS: FAMOTIDINE 20 MG TAB PO (08:20)
[2018-07-29] MEDS: HYDROCHLOROTHIAZIDE 25 MG TAB GTB (08:20)
[2018-07-29] MEDS: BALSAM PERU/CASTOR OIL 60 GM TUBE TOP (08:21)
[2018-07-29 08:30] LABS: ADD MAN DIFF? NO
[2018-07-29 08:37] LABS: WHITE BLOOD COUNT 2.5 10^3/ul (4.8-10.8)
[2018-07-29 08:37] LABS: ABNORMAL IP MESSAGE 1; HEMOGLOBIN 7.2 g/dl (14.0-18.0); LYMPHOCYTES # 0.2 10^3/ul (0.8-2.9); LYMPHOCYTES % 7.3 % (15.0-51.0); MEAN CORPUSCULAR HEMOGLOBIN 27.8 pg (29.0-33.0); MEAN CORPUSCULAR VOLUME 92.7 fl (82.0-101.0); MEAN PLATELET VOLUME 12.4 fl (7.4-10.4); MONOCYTE # 0.1 10^3/ul (0.3-0.9); MONOCYTES % 2.4 % (0.0-11.0); NEUTROPHIL # 2.2 10^3/ul (1.6-7.5); NEUTROPHILS % 89.9 % (39.0-77.0); PLATELET COUNT 36 10^3/UL (140-415); POSITIVE DIFF @See below; RED BLOOD COUNT 2.59 10^6/ul (4.70-6.10); RED CELL DISTRIBUTION WIDTH 16.7 % (11.5-14.5)
[2018-07-29] MEDS: LEVOFLOXACIN 500MG/D5W (PMX) 100 ML IVPB (11:08)
[2018-07-29] MEDS: SENNA/DOCUSATE NA (8.6MG/50MG) TAB PO (12:03)
[2018-07-29] MEDS ORDERED: DIMETHICONE STICK TOP (12:30)
[2018-07-29] MEDS ORDERED: ONDANSETRON (ODT) 4 MG TAB ODT (12:30)
[2018-07-29] MEDS ORDERED: ARTIFICIAL TEARS 15 ML OPH BOTH EYES (12:30)
[2018-07-29] MEDS: morphine (DRIP) 100 MG/100 ML 100 ML IV (14:33)
[2018-07-29 15:21] LABS: CREATININE, RANDOM URINE 21 mg/dL (20-320); MICROALBUMIN 1.4 mg/dL; MICROALBUMIN/CREATININE RATIO 67 (<30)
[2018-07-29] MEDS: LORAZEPAM 2 MG INJ IV (15:32)
[2018-07-29] MEDS: ATROPINE 1% 5 ML OPH SL (16:07)
== END 2018-07-29 16:40 | disposition expired | DRG 870 ==
LOC: 2NE 07-05 13:09 → 5EC 07-07 20:00 → ICU 07-12 10:41 → 6WM 07-18 20:57 → ICU 07-20 13:02 → E/R 18:17 → ICU 07-01 03:31
PROC: 02HV33Z Insertion of Infusion Device into Superior Vena Cava, Percutaneous Approach (ICD-10-PCS; principal; 2018-07-23 18:00)
PROC: 5A1955Z Respiratory Ventilation, Greater than 96 Consecutive Hours (ICD-10-PCS; 2018-07-23 18:00)
PROC: 0BH17EZ Insertion of Endotracheal Airway into Trachea, Via Natural or Artificial Opening (ICD-10-PCS; 2018-07-23 18:00)
PROC: 0DH63UZ Insertion of Feeding Device into Stomach, Percutaneous Approach (ICD-10-PCS; 2018-07-23 18:00)
PROC: 0BH18EZ Insertion of Endotracheal Airway into Trachea, Via Natural or Artificial Opening Endoscopic (ICD-10-PCS; 2018-07-23 18:00)
PROC: 5A12012 Performance of Cardiac Output, Single, Manual (ICD-10-PCS; 2018-07-23 18:00)
PROC: 0W9B30Z Drainage of Left Pleural Cavity with Drainage Device, Percutaneous Approach (ICD-10-PCS; 2018-07-23 18:00)
PROC: 5A1955Z Respiratory Ventilation, Greater than 96 Consecutive Hours (ICD-10-PCS; 2018-07-23 18:00)
DX: A41.9 Sepsis, unspecified organism (principal); R65.21 Severe sepsis with septic shock; J96.01 Acute respiratory failure with hypoxia; J96.02 Acute respiratory failure with hypercapnia; G92 Toxic encephalopathy; J69.0 Pneumonitis due to inhalation of food and vomit; I21.4 Non-ST elevation (NSTEMI) myocardial infarction; N17.0 Acute kidney failure with tubular necrosis; Z68.1 Body mass index [BMI] 19.9 or less, adult; J93.9 Pneumothorax, unspecified; E87.2 Acidosis; N39.0 Urinary tract infection, site not specified; E44.0 Moderate protein-calorie malnutrition; E87.0 Hyperosmolality and hypernatremia; I50.30 Unspecified diastolic (congestive) heart failure; I82.622 Acute embolism and thrombosis of deep veins of left upper extremity; I82.A12 Acute embolism and thrombosis of left axillary vein; N25.1 Nephrogenic diabetes insipidus; D61.818 Other pancytopenia; I46.8 Cardiac arrest due to other underlying condition; E78.5 Hyperlipidemia, unspecified; N40.0 Benign prostatic hyperplasia without lower urinary tract symptoms; K66.8 Other specified disorders of peritoneum; G40.909 Epilepsy, unspecified, not intractable, without status epilepticus; E87.5 Hyperkalemia; N18.9 Chronic kidney disease, unspecified; D63.1 Anemia in chronic kidney disease; D69.6 Thrombocytopenia, unspecified; R13.10 Dysphagia, unspecified; I46.9 Cardiac arrest, cause unspecified; J43.9 Emphysema, unspecified; F25.1 Schizoaffective disorder, depressive type; Z66 Do not resuscitate
CPT/HCPCS: 31500; 36415; 36430; 36600; 70450; 71045; 74018; 74176; 74177; 80048; 80053; 80202; 81001; 81003; 82043; 82803; 83036; 83605; 83735; 83935; 84100; 84155; 84295; 84300; 84484; 85025; 85610; 85730; 86850; 86900; 86901; 87040; 87070; 87081; 87086; 89220; 90686; 92526; 92610; 92950; 93005; 93306; 93971; 94002; 94003; 94640; 94664; 94668; 94770; 96365; 96366; 96367; 97110; 97161; 97164; 97530; 99291-25